=== PATIENT | male | born 1940 | race Caucasian/White ===

== ENCOUNTER 2017-08-16 16:09 | Inpatient (IN) | payer MEDICARE ==
[~2017-08-16] VITALS: Ht 182.9 cm; Wt 100.0 kg
[~2017-08-16 16:09] MED LIST: AMLO10TA PO; APIX2.5T PO; CLOP75TA15 PO; INSU100I25 SQ; LACT1CAP65 PO; LINA5TAB4 PO; METH500T PO; OXYC-150 PO; PREG100C PO; TAMS0.4C32 PO
[2017-08-16] MEDS ORDERED: SPIR50TA3 PO (16:40)
[2017-08-16] MEDS ORDERED: FURO40TA4 PO (16:40)
[2017-08-16 16:45] LABS: BASOPHILS % (AUTO) 0.5 % (0-1); EOSINOPHILS # (AUTO) 0.2 X10'3 (0-0.9); EOSINOPHILS % (AUTO) 3.4 % (0-6); HEMATOCRIT 34.8 % (42.0-52.0); HEMOGLOBIN 11.6 g/dl (14.0-17.9); LYMPHOCYTES # (AUTO) 0.9 X10'3 (1.1-4.8); LYMPHOCYTES % (AUTO) 16.6 % (21-51); MEAN CORPUSCULAR HGB CONC 33.4 % (33.0-36.5); MEAN CORPUSCULAR VOLUME 83.9 FL (78-98); MEAN PLATELET VOLUME 8.4 FL (7.4-10.4); MONOCYTES # (AUTO) 0.5 X10'3 (0-0.9); MONOCYTES % (AUTO) 9.7 % (2-12); NEUTROPHILS # (AUTO) 3.6 X10'3 (1.8-7.7); NEUTROPHILS % (AUTO) 69.8 % (42-75); PLATELET COUNT 99 X10'3 (140-440); RED BLOOD COUNT 4.15 X10'6 (4.70-6.10); RED CELL DISTRIBUTION WIDTH 17.6 % (11.5-14.5); WHITE BLOOD COUNT 5.2 X10'3 (4.5-11.0)
[2017-08-16 16:56] LABS: INR 0.9 INR; PARTIAL THROMBOPLASTIN TIME 26 SECONDS (22-32); PROTHROMBIN TIME 9.8 SECONDS (9.0-12.0)
[2017-08-16 17:01] LABS: ALANINE AMINOTRANSFERASE 25 U/L (12-78); ALBUMIN 3.4 G/DL (3.4-5.0); ALBUMIN/GLOBULIN RATIO 1.2 (1.1-1.5); ALKALINE PHOSPHATASE 103 IU/L (46-116); ANION GAP 9 (8-16); ASPARTATE AMINO TRANSFERASE 14 U/L (10-37); BILIRUBIN,TOTAL 0.5 MG/DL (0.1-1.0); BLOOD UREA NITROGEN 58 MG/DL (7-18); BUN/CREATININE RATIO 16.6 (5.4-32.0); CALCIUM 8.5 MG/DL (8.5-10.1); CHLORIDE 115 MMOL/L (99-107); GLUCOSE 100 MG/DL (70-104); MAGNESIUM 1.7 MG/DL (1.5-2.4); PHOSPHORUS 3.7 MG/DL (2.3-4.5); SODIUM 144 MMOL/L (135-145); TOTAL CARBON DIOXIDE 20.2 MMOL/L (24-32); TOTAL PROTEIN 6.3 G/DL (6.4-8.2); eGFR 17 ML/MIN
[2017-08-16] MEDS ORDERED: normal saline 1000ML IV soln IVB ONE ×2 (17:05→17:15)
[2017-08-16 17:10] LABS: POTASSIUM 6.8 MMOL/L (3.5-5.1)
[2017-08-16] MEDS ORDERED: sodium polystyrene sulfonate 15gm/60ml oral suspension PO ONE (17:15)
[2017-08-16] MEDS ORDERED: furosemide 10 MG/1 ML 10ml inj IV ONE (17:15)
[2017-08-16] MEDS: normal saline 1000ml 1,000 ML IV SCH ×3 (17:41→22:24)
[2017-08-16] MEDS ORDERED: acetaminophen 325mg tablet PO PRN ×2 (17:45)
[2017-08-16] MEDS ORDERED: mag hydrox/Alum hydrox/simeth 30ml oral suspension PO PRN (17:45)
[2017-08-16] MEDS ORDERED: ondansetron/PF 4mg/2ml inj IV PRN (17:45)
[2017-08-16] MEDS ORDERED: HYDROcodone/acetaminophen 10/325mg tab PO PRN (17:45)
[2017-08-16] MEDS ORDERED: magnesium hydroxide 30ml (MOM) UD suspension PO PRN (17:45)
[2017-08-16] MEDS ORDERED: HYDROcodone/acetaminophen 5mg/325mg tablet PO PRN (17:45)
[2017-08-16] MEDS ORDERED: sodium polystyrene sulfonate 15gm/60ml oral suspension PO PRN (17:45)
[2017-08-16] MEDS ORDERED: glucagon, human recombinant 1mg kit SUBCUT PRN (18:05)
[2017-08-16] MEDS ORDERED: dextrose ORAL solution 15 GM/59 ML bottle PO PRN ×2 (18:05)
[2017-08-16] MEDS ORDERED: insulin Lispro (HumaLOG) vial - multi-dose SQ SCH (18:05)
[2017-08-16] MEDS ORDERED: dextrose 50%-water 50ml dispensing syringe IV PRN ×2 (18:05)
[2017-08-16] MEDS ORDERED: MESSAGE TO PHARMACY PO ONE (18:05)
[2017-08-16 20:00] VITALS: BP 180/65
[2017-08-16] MEDS: insulin glargine (Lantus) pen - multi-dose SQ SCH (20:00)
[2017-08-16] MEDS ORDERED: non-formulary drug (Lactobacillus Acidophilus (Probiotic) 1 EACH) PO SCH (20:00)
[2017-08-16] MEDS ORDERED: non-formulary drug (Pregabalin (Lyrica) 1 CAP) PO SCH (20:00)
[2017-08-16] MEDS: pregabalin 25mg capsule PO SCH (20:12)
[2017-08-16] MEDS: apixaban 5mg tablet PO SCH (20:12)
[2017-08-16] MEDS: cyclobenzaprine 10mg tablet PO SCH ×2 (20:12→20:14)
[2017-08-16] MEDS ORDERED: temazepam 15mg capsule PO PRN (21:00)
[2017-08-16] MEDS ORDERED: insulin glargine (Lantus) pen - multi-dose SQ SCH (21:00)
[2017-08-16] MEDS ORDERED: Insulin Detemir pen SQ SCH (21:00)
[2017-08-16 21:43] LABS: HEMOGLOBIN A1C 4.6 % (4.5-6.2)
[2017-08-16 21:45] LABS: ALBUMIN 3.3 G/DL (3.4-5.0); ANION GAP 10 (8-16); BLOOD UREA NITROGEN 53 MG/DL (7-18); BUN/CREATININE RATIO 15.6 (5.4-32.0); CALCIUM 8.3 MG/DL (8.5-10.1); CHLORIDE 116 MMOL/L (99-107); GLUCOSE 127 MG/DL (70-104); POTASSIUM 5.7 MMOL/L (3.5-5.1); SODIUM 146 MMOL/L (135-145); TOTAL CARBON DIOXIDE 20.2 MMOL/L (24-32); eGFR 18 ML/MIN
[2017-08-16 22:00] VITALS: BP 172/72
[2017-08-17] MEDS ORDERED: non-formulary drug (Methocarbamol (Robaxin) 1 TAB) PO SCH
[2017-08-17] MEDS ORDERED: heparin, porcine 5000 units/ml vial SQ SCH
[2017-08-17 02:00] VITALS: BP 168/70
[2017-08-17 06:00] VITALS: BP 169/63
[2017-08-17 06:16] LABS: HEMATOCRIT 30.1 % (42.0-52.0); HEMOGLOBIN 10.1 g/dl (14.0-17.9); MEAN CORPUSCULAR HEMOGLOBIN 28.1 PG (27.0-31.0); MEAN CORPUSCULAR HGB CONC 33.5 % (33.0-36.5); MEAN CORPUSCULAR VOLUME 83.8 FL (78-98); MEAN PLATELET VOLUME 8.1 FL (7.4-10.4); PLATELET COUNT 72 X10'3 (140-440); RED BLOOD COUNT 3.58 X10'6 (4.70-6.10); RED CELL DISTRIBUTION WIDTH 17.2 % (11.5-14.5); WHITE BLOOD COUNT 3.2 X10'3 (4.5-11.0)
[2017-08-17 06:22] LABS: ALBUMIN 2.7 G/DL (3.4-5.0); ANION GAP 8 (8-16); BLOOD UREA NITROGEN 48 MG/DL (7-18); BUN/CREATININE RATIO 15.5 (5.4-32.0); CALCIUM 7.9 MG/DL (8.5-10.1); CHLORIDE 117 MMOL/L (99-107); GLUCOSE 115 MG/DL (70-104); MAGNESIUM 1.5 MG/DL (1.5-2.4); POTASSIUM 5.7 MMOL/L (3.5-5.1); SODIUM 144 MMOL/L (135-145); TOTAL CARBON DIOXIDE 18.7 MMOL/L (24-32); eGFR 20 ML/MIN
[2017-08-17] MEDS ORDERED: LACTOBACILLUS RHAMNOSUS GG 15 billion unit sprinkle caps PO SCH (07:30)
[2017-08-17] MEDS ORDERED: clopidogrel 75mg tablet PO SCH (08:00)
[2017-08-17] MEDS ORDERED: non-formulary drug (Amlodipine Besylate 1 TABLET) PO SCH (08:00)
[2017-08-17] MEDS ORDERED: linagliptin 5mg tablet PO SCH (08:00)
[2017-08-17] MEDS: insulin glargine (Lantus) pen - multi-dose SQ SCH (08:00)
[2017-08-17] MEDS: oxyCODONE/APAP 10/325mg tablet PO SCH ×2 (08:00)
[2017-08-17] MEDS ORDERED: amLODIPine 5mg tablet PO SCH (08:00)
[2017-08-17] MEDS ORDERED: tamsulosin 0.4mg capsule PO SCH (08:00)
[2017-08-17] MEDS: pregabalin 25mg capsule PO SCH (08:06)
[2017-08-17] MEDS: cyclobenzaprine 10mg tablet PO SCH ×2 (08:09)
[2017-08-17] MEDS: apixaban 5mg tablet PO SCH (08:10)
[2017-08-17 11:00] VITALS: BP 167/70
[2017-08-17] MEDS: normal saline 1000ml 1,000 ML IV SCH (11:53)
== END 2017-08-17 15:00 | disposition home or self-care (01) | DRG 640 ==
LOC: ER 16:10 → ED HOLD 17:54 → CMPBEDREQ 19:28 → PCU 3S 19:45
PROVIDERS: ADMIT Family Medicine; ATTEND Family Medicine
DX: E87.5 Hyperkalemia (principal); N17.0 Acute kidney failure with tubular necrosis; N18.4 Chronic kidney disease, stage 4 (severe); G89.29 Other chronic pain; M54.5 Low back pain; E87.1 Hypo-osmolality and hyponatremia; E11.22 Type 2 diabetes mellitus with diabetic chronic kidney disease; E11.42 Type 2 diabetes mellitus with diabetic polyneuropathy; E78.5 Hyperlipidemia, unspecified; I12.9 Hypertensive chronic kidney disease with stage 1 through stage 4 chronic kidney disease, or unspecified chronic kidney disease; Z89.411 Acquired absence of right great toe; Z90.49 Acquired absence of other specified parts of digestive tract; Z90.5 Acquired absence of kidney; Z93.3 Colostomy status; Z79.01 Long term (current) use of anticoagulants; Z79.02 Long term (current) use of antithrombotics/antiplatelets; Z79.4 Long term (current) use of insulin; Z85.038 Personal history of other malignant neoplasm of large intestine; Z85.528 Personal history of other malignant neoplasm of kidney; Z86.79 Personal history of other diseases of the circulatory system
CPT/HCPCS: 36415; 80048; 80053; 82948; 83036; 83735; 84100; 84132; 85025; 85027; 85610; 85730; 87070; 93005; 96374; 99285; A4421; A6212; A6213; J1815; J1940; J7030

== ENCOUNTER 2017-12-23 19:59 | Inpatient (IN) | payer MEDICARE ==
[~2017-12-23] VITALS: Ht 182.9 cm; Wt 100.0 kg
[2017-12-23] MEDS ORDERED: metroNIDAZOLE-Flagyl 500mg/NS 100 ML IV ONE (20:15)
[2017-12-23] MEDS ORDERED: normal saline 1000ML IV soln IVB ONE (20:15)
[2017-12-23] MEDS ORDERED: levoFLOXACIN-Levaquin 500mg/D5 100 ML IV ONE (20:15)
[2017-12-23 20:44] LABS: BASOPHILS % (AUTO) 0.3 % (0-1); EOSINOPHILS # (AUTO) 0.1 X10'3 (0-0.9); EOSINOPHILS % (AUTO) 1.1 % (0-6); HEMATOCRIT 36.2 % (42.0-52.0); HEMOGLOBIN 12.4 g/dl (14.0-17.9); LYMPHOCYTES # (AUTO) 0.8 X10'3 (1.1-4.8); LYMPHOCYTES % (AUTO) 7.7 % (21-51); MEAN CORPUSCULAR HEMOGLOBIN 29.4 PG (27.0-31.0); MEAN CORPUSCULAR HGB CONC 34.3 % (33.0-36.5); MEAN CORPUSCULAR VOLUME 85.6 FL (78-98); MEAN PLATELET VOLUME 8.5 FL (7.4-10.4); MONOCYTES # (AUTO) 0.7 X10'3 (0-0.9); MONOCYTES % (AUTO) 6.2 % (2-12); NEUTROPHILS % (AUTO) 84.7 % (42-75); PLATELET COUNT 105 X10'3 (140-440); RED BLOOD COUNT 4.23 X10'6 (4.70-6.10); RED CELL DISTRIBUTION WIDTH 15.5 % (11.5-14.5); WHITE BLOOD COUNT 10.6 X10'3 (4.5-11.0)
[2017-12-23 20:55] LABS: PARTIAL THROMBOPLASTIN TIME 27 SECONDS (22-32); PROTHROMBIN TIME 10.1 SECONDS (9.0-12.0)
[2017-12-23 21:00] LABS: ALANINE AMINOTRANSFERASE 20 U/L (12-78); ALBUMIN 3.5 G/DL (3.4-5.0); ALBUMIN/GLOBULIN RATIO 1.1 (1.1-1.5); ALKALINE PHOSPHATASE 91 IU/L (46-116); ANION GAP 15 (8-16); ASPARTATE AMINO TRANSFERASE 16 U/L (10-37); BILIRUBIN,TOTAL 0.8 MG/DL (0.1-1.0); BLOOD UREA NITROGEN 84 MG/DL (7-18); BUN/CREATININE RATIO 19.2 (5.4-32.0); CALCIUM 8.7 MG/DL (8.5-10.1); CHLORIDE 108 MMOL/L (99-107); CREATININE 4.38 MG/DL (0.60-1.10); GLUCOSE 145 MG/DL (70-104); SODIUM 141 MMOL/L (135-145); TOTAL CARBON DIOXIDE 18.1 MMOL/L (24-32); TOTAL PROTEIN 6.7 G/DL (6.4-8.2); eGFR 13 ML/MIN
[2017-12-23] MEDS ORDERED: temazepam 15mg capsule PO PRN (21:00)
[2017-12-23 21:05] LABS: POTASSIUM 5.6 MMOL/L (3.5-5.1)
[2017-12-23] MEDS ORDERED: acetaminophen 325mg tablet PO ONE (21:20)
[2017-12-23] MEDS ORDERED: AMLO10TA PO (21:57)
[2017-12-23] MEDS ORDERED: FURO80TA3 PO (21:57)
[2017-12-23] MEDS ORDERED: FURO-150 PO (21:57)
[2017-12-23 22:39] LABS: CLARITY,URINE CLEAR (Clear); COLOR,URINE YELLOW (Yellow); GLUCOSE, URINE 100 mg/dl (Neg); KETONES,URINE NEGATIVE (Neg); LEUKOCYTE ESTERASE ,URINE NEGATIVE (Neg); NITRITES, URINE NEGATIVE (Neg); OCCULT BLOOD,URINE MODERATE (Neg); PROTEIN,URINE >=300 mg/dl (Neg); UROBILINOGEN,URINE 0.2 E.U/dL (0.2-1.0)
[2017-12-23 22:40] LABS: UA COLLECTION TYPE CLN CATCH MIDSTREAM
[2017-12-23 23:01] LABS: MUCUS STRANDS FEW /LPF (Neg); SQUAMOUS EPITHELIAL CELL,UR FEW /LPF (FEW)
[2017-12-23 23:02] LABS: COARSE GRANULAR CAST 0-3 /LPF (NEGATIVE); HYALINE CASTS 0-3 /LPF (NEGATIVE)
[2017-12-23 23:03] LABS: BACTERIA,URINE NONE SEEN /HPF (Neg); RBC,URINE 0-2 /HPF (0-2); WBC,URINE 0-4 /HPF (0-4)
[2017-12-24] MEDS ORDERED: mag hydrox/Alum hydrox/simeth 30ml oral suspension PO PRN
[2017-12-24] MEDS ORDERED: acetaminophen 325mg tablet PO PRN ×2
[2017-12-24] MEDS ORDERED: HYDROcodone/acetaminophen 5mg/325mg tablet PO PRN
[2017-12-24] MEDS ORDERED: metoclopramide 5 mg/ml inj IV PRN
[2017-12-24] MEDS ORDERED: ondansetron/PF 4mg/2ml inj IV PRN
[2017-12-24] MEDS ORDERED: magnesium hydroxide 30ml (MOM) UD suspension PO PRN
[2017-12-24] MEDS ORDERED: dextrose 50%-water 50ml dispensing syringe IV PRN ×2 (00:15)
[2017-12-24] MEDS ORDERED: MESSAGE TO PHARMACY PO ONE (00:15)
[2017-12-24] MEDS ORDERED: glucagon, human recombinant 1mg kit SUBCUT PRN (00:15)
[2017-12-24] MEDS ORDERED: dextrose ORAL solution 15 GM/59 ML bottle PO PRN ×2 (00:15)
[2017-12-24 02:00] VITALS: BP 135/58
[2017-12-24] MEDS: normal saline 1000ml 1,000 ML IV SCH ×4 (02:44→17:50)
[2017-12-24 06:17] LABS: ALANINE AMINOTRANSFERASE 17 U/L (12-78); ALBUMIN 2.5 G/DL (3.4-5.0); ALKALINE PHOSPHATASE 63 IU/L (46-116); ANION GAP 12 (8-16); ASPARTATE AMINO TRANSFERASE 14 U/L (10-37); BILIRUBIN,TOTAL 0.5 MG/DL (0.1-1.0); BLOOD UREA NITROGEN 77 MG/DL (7-18); BUN/CREATININE RATIO 19.1 (5.4-32.0); CALCIUM 7.8 MG/DL (8.5-10.1); CHLORIDE 114 MMOL/L (99-107); CREATININE 4.04 MG/DL (0.60-1.10); GLUCOSE 150 MG/DL (70-104); POTASSIUM 4.8 MMOL/L (3.5-5.1); SODIUM 145 MMOL/L (135-145); TOTAL CARBON DIOXIDE 18.8 MMOL/L (24-32); TOTAL PROTEIN 5.1 G/DL (6.4-8.2); eGFR 14 ML/MIN
[2017-12-24 07:35] VITALS: BP 141/76
[2017-12-24] MEDS ORDERED: insulin glargine (Lantus) pen - multi-dose SQ SCH (08:00)
[2017-12-24] MEDS ORDERED: Insulin Detemir pen SQ SCH (08:00)
[2017-12-24 09:02] LABS: BASOPHILS % (AUTO) 0.2 % (0-1); EOSINOPHILS # (AUTO) 0.1 X10'3 (0-0.9); EOSINOPHILS % (AUTO) 1.5 % (0-6); HEMATOCRIT 29.8 % (42.0-52.0); HEMOGLOBIN 10.1 g/dl (14.0-17.9); LYMPHOCYTES % (AUTO) 16.2 % (21-51); MEAN CORPUSCULAR HEMOGLOBIN 28.7 PG (27.0-31.0); MEAN CORPUSCULAR HGB CONC 33.8 % (33.0-36.5); MEAN CORPUSCULAR VOLUME 84.9 FL (78-98); MEAN PLATELET VOLUME 8.3 FL (7.4-10.4); MONOCYTES # (AUTO) 0.6 X10'3 (0-0.9); MONOCYTES % (AUTO) 9.8 % (2-12); NEUTROPHILS # (AUTO) 4.6 X10'3 (1.8-7.7); NEUTROPHILS % (AUTO) 72.3 % (42-75); RED BLOOD COUNT 3.51 X10'6 (4.70-6.10); RED CELL DISTRIBUTION WIDTH 15.2 % (11.5-14.5); WHITE BLOOD COUNT 6.3 X10'3 (4.5-11.0)
[2017-12-24 09:13] LABS: PLATELET COUNT 68 X10'3 (140-440)
[2017-12-24] MEDS: amLODIPine 5mg tablet PO SCH (09:56)
[2017-12-24] MEDS: lactobacillus rhamnosus 10,000 MMU CELLS/CAPSULE PO SCH ×2 (09:56→19:50)
[2017-12-24] MEDS: pregabalin 25mg capsule PO SCH ×2 (09:56→19:50)
[2017-12-24] MEDS: oxyCODONE/APAP 10/325mg tablet PO SCH ×2 (09:58→16:00)
[2017-12-24] MEDS: heparin, porcine 5000 units/ml vial SQ SCH ×2 (09:59→19:51)
[2017-12-24 11:13] LABS: C-REACTIVE PROTEIN 8.56 MG/DL (0.0-0.5); LIPASE 241 U/L (73-393); TROPONIN I < 0.04 NG/ML (0.0-0.05)
[2017-12-24 12:53] VITALS: BP 137/62
[2017-12-24 18:00] VITALS: BP 147/63
[2017-12-24] MEDS: methylPREDNISolone sod succ 125mg/2ml vial IV SCH (19:50)
[2017-12-24] MEDS: insulin Lispro (HumaLOG) vial - multi-dose SQ SCH (19:54)
[2017-12-24] MEDS: insulin glargine (Lantus) pen - multi-dose SQ SCH (21:51)
[2017-12-25] VITALS: BP_SYST 121; BP_SYST 149; BP_DIAS 52; BP_DIAS 71
[2017-12-25] MEDS: normal saline 1000ml 1,000 ML IV SCH ×3 (02:05→21:15)
[2017-12-25 04:30] VITALS: BP 161/62
[2017-12-25 05:44] LABS: BASOPHILS % (AUTO) 0 % (0-1); HEMATOCRIT 31.1 % (42.0-52.0); HEMOGLOBIN 10.5 g/dl (14.0-17.9); LYMPHOCYTES # (AUTO) 0.3 X10'3 (1.1-4.8); LYMPHOCYTES % (AUTO) 6.6 % (21-51); MEAN CORPUSCULAR HEMOGLOBIN 29.1 PG (27.0-31.0); MEAN CORPUSCULAR HGB CONC 33.7 % (33.0-36.5); MEAN CORPUSCULAR VOLUME 86.2 FL (78-98); MEAN PLATELET VOLUME 8.6 FL (7.4-10.4); MONOCYTES # (AUTO) 0.1 X10'3 (0-0.9); MONOCYTES % (AUTO) 1.6 % (2-12); NEUTROPHILS # (AUTO) 4.3 X10'3 (1.8-7.7); NEUTROPHILS % (AUTO) 90.8 % (42-75); PLATELET COUNT 68 X10'3 (140-440); RED BLOOD COUNT 3.61 X10'6 (4.70-6.10); RED CELL DISTRIBUTION WIDTH 15.4 % (11.5-14.5); WHITE BLOOD COUNT 4.7 X10'3 (4.5-11.0)
[2017-12-25 06:18] LABS: ALANINE AMINOTRANSFERASE 15 U/L (12-78); ALBUMIN 2.7 G/DL (3.4-5.0); ALBUMIN/GLOBULIN RATIO 0.9 (1.1-1.5); ALKALINE PHOSPHATASE 66 IU/L (46-116); ANION GAP 13 (8-16); ASPARTATE AMINO TRANSFERASE 13 U/L (10-37); BILIRUBIN,TOTAL 0.4 MG/DL (0.1-1.0); BLOOD UREA NITROGEN 69 MG/DL (7-18); BUN/CREATININE RATIO 18.1 (5.4-32.0); CALCIUM 8.4 MG/DL (8.5-10.1); CHLORIDE 113 MMOL/L (99-107); CREATININE 3.82 MG/DL (0.60-1.10); GLUCOSE 224 MG/DL (70-104); POTASSIUM 5.9 MMOL/L (3.5-5.1); SODIUM 142 MMOL/L (135-145); TOTAL CARBON DIOXIDE 16.5 MMOL/L (24-32); TOTAL PROTEIN 5.6 G/DL (6.4-8.2); eGFR 15 ML/MIN
[2017-12-25] MEDS ORDERED: levoFLOXACIN-Levaquin 750MG/D5 150 ML IV ONE (06:55)
[2017-12-25 07:28] VITALS: BP 162/63
[2017-12-25] MEDS: oxyCODONE/APAP 10/325mg tablet PO SCH ×2 (08:00)
[2017-12-25] MEDS: heparin, porcine 5000 units/ml vial SQ SCH ×3 (08:00→21:27)
[2017-12-25] MEDS: methylPREDNISolone sod succ 125mg/2ml vial IV SCH ×2 (08:23→21:26)
[2017-12-25] MEDS: pregabalin 25mg capsule PO SCH ×2 (08:24→21:27)
[2017-12-25] MEDS: lactobacillus rhamnosus 10,000 MMU CELLS/CAPSULE PO SCH ×2 (08:24→21:26)
[2017-12-25] MEDS: amLODIPine 5mg tablet PO SCH (08:24)
[2017-12-25] MEDS: insulin Lispro (HumaLOG) vial - multi-dose SQ SCH ×3 (09:29→21:48)
[2017-12-25] MEDS ORDERED: oxyCODONE/APAP 10/325mg tablet PO PRN (10:35)
[2017-12-25] MEDS ORDERED: dextrose 50%-water 50ml dispensing syringe IV ONE (12:45)
[2017-12-25] MEDS ORDERED: albuterol 2.5 MG/3 ML nebule NEB ONE (12:45)
[2017-12-25] MEDS ORDERED: sodium bicarbonate (8.4%) 1 mEq/ml syringe IV ONE (12:45)
[2017-12-25] MEDS ORDERED: sodium polystyrene sulfonate 15gm/60ml oral suspension PO ONE (12:45)
[2017-12-25] MEDS ORDERED: insulin regular, human 10 units/0.1 ml syringe IV ONE (12:45)
[2017-12-25] MEDS: HYDROchlorothiazide 25mg tablet PO SCH (14:16)
[2017-12-25] MEDS: furosemide 40mg/4ml inj IV SCH (14:19)
[2017-12-25 15:12] VITALS: BP 163/58
[2017-12-25] MEDS: vancomycin inj 1,250 MG in normal saline 250ml IV soln 250 ML IV SCH (16:51)
[2017-12-25] MEDS ORDERED: heparin 10,000 units/1 ML INJ IV ONE (18:30)
[2017-12-25] MEDS ORDERED: heparin 10,000 units/1 ML INJ IV PRN (18:30)
[2017-12-25 19:10] VITALS: BP 144/54
[2017-12-25 20:00] VITALS: BP 144/54
[2017-12-25] MEDS ORDERED: vancomycin/NS 1 GM ADD-VANTAGE 250 ML IV SCH (20:00)
[2017-12-25] MEDS: cloNIDine 0.1 mg tablet PO SCH ×2 (20:00→21:26)
[2017-12-25] MEDS: insulin glargine (Lantus) pen - multi-dose SQ SCH (21:50)
[2017-12-26] VITALS: BP 147/52
[2017-12-26 05:46] LABS: BASOPHILS % (AUTO) 0 % (0-1); EOSINOPHILS % (AUTO) 0 % (0-6); HEMATOCRIT 28.2 % (42.0-52.0); HEMOGLOBIN 9.6 g/dl (14.0-17.9); LYMPHOCYTES # (AUTO) 0.3 X10'3 (1.1-4.8); LYMPHOCYTES % (AUTO) 4.5 % (21-51); MEAN CORPUSCULAR HEMOGLOBIN 29.2 PG (27.0-31.0); MEAN CORPUSCULAR HGB CONC 34.2 % (33.0-36.5); MEAN CORPUSCULAR VOLUME 85.4 FL (78-98); MEAN PLATELET VOLUME 8.8 FL (7.4-10.4); MONOCYTES # (AUTO) 0.2 X10'3 (0-0.9); MONOCYTES % (AUTO) 3.5 % (2-12); NEUTROPHILS # (AUTO) 5.5 X10'3 (1.8-7.7); PLATELET COUNT 79 X10'3 (140-440); RED CELL DISTRIBUTION WIDTH 14.7 % (11.5-14.5)
[2017-12-26 06:02] LABS: ALANINE AMINOTRANSFERASE 16 U/L (12-78); ALBUMIN 2.6 G/DL (3.4-5.0); ALKALINE PHOSPHATASE 64 IU/L (46-116); ANION GAP 15 (8-16); ASPARTATE AMINO TRANSFERASE 8 U/L (10-37); BILIRUBIN,TOTAL 0.3 MG/DL (0.1-1.0); BLOOD UREA NITROGEN 71 MG/DL (7-18); BUN/CREATININE RATIO 18.1 (5.4-32.0); CALCIUM 8.1 MG/DL (8.5-10.1); CHLORIDE 111 MMOL/L (99-107); CREATININE 3.93 MG/DL (0.60-1.10); GLUCOSE 248 MG/DL (70-104); POTASSIUM 4.1 MMOL/L (3.5-5.1); SODIUM 143 MMOL/L (135-145); TOTAL CARBON DIOXIDE 17.3 MMOL/L (24-32); TOTAL PROTEIN 5.3 G/DL (6.4-8.2); eGFR 15 ML/MIN
[2017-12-26 07:37] VITALS: BP 146/58
[2017-12-26] MEDS: heparin, porcine 5000 units/ml vial SQ SCH ×2 (07:46→20:00)
[2017-12-26] MEDS: lactobacillus rhamnosus 10,000 MMU CELLS/CAPSULE PO SCH ×2 (07:47→20:39)
[2017-12-26] MEDS: pregabalin 25mg capsule PO SCH ×2 (07:47→20:38)
[2017-12-26] MEDS: amLODIPine 5mg tablet PO SCH (07:47)
[2017-12-26] MEDS: methylPREDNISolone sod succ 125mg/2ml vial IV SCH ×2 (07:47→20:36)
[2017-12-26] MEDS: cloNIDine 0.1 mg tablet PO SCH ×2 (07:48→20:00)
[2017-12-26] MEDS: normal saline 1000ml 1,000 ML IV SCH ×3 (07:50→16:15)
[2017-12-26] MEDS: insulin Lispro (HumaLOG) vial - multi-dose SQ SCH ×4 (07:58→22:16)
[2017-12-26 11:50] VITALS: BP 155/68
[2017-12-26 11:52] LABS: MAGNESIUM 1.5 MG/DL (1.5-2.4); PHOSPHORUS 5.6 MG/DL (2.3-4.5)
[2017-12-26] MEDS: HYDROchlorothiazide 25mg tablet PO SCH (12:49)
[2017-12-26] MEDS: furosemide 40mg/4ml inj IV SCH (12:49)
[2017-12-26] MEDS: vancomycin inj 1,250 MG in normal saline 250ml IV soln 250 ML IV SCH (16:11)
[2017-12-26 20:00] VITALS: BP 156/61
[2017-12-26] MEDS: insulin glargine (Lantus) pen - multi-dose SQ SCH (22:14)
[2017-12-27] VITALS: BP 114/57
[2017-12-27] MEDS: normal saline 1000ml 1,000 ML IV SCH ×4 (02:28→23:57)
[2017-12-27 06:25] LABS: BASOPHILS % (AUTO) 0.1 % (0-1); EOSINOPHILS % (AUTO) 0 % (0-6); HEMATOCRIT 28.7 % (42.0-52.0); HEMOGLOBIN 9.8 g/dl (14.0-17.9); LYMPHOCYTES # (AUTO) 0.2 X10'3 (1.1-4.8); LYMPHOCYTES % (AUTO) 4.8 % (21-51); MEAN CORPUSCULAR HEMOGLOBIN 28.7 PG (27.0-31.0); MEAN CORPUSCULAR HGB CONC 33.9 % (33.0-36.5); MEAN CORPUSCULAR VOLUME 84.6 FL (78-98); MEAN PLATELET VOLUME 8.3 FL (7.4-10.4); MONOCYTES # (AUTO) 0.2 X10'3 (0-0.9); MONOCYTES % (AUTO) 3.9 % (2-12); NEUTROPHILS # (AUTO) 4.4 X10'3 (1.8-7.7); NEUTROPHILS % (AUTO) 91.2 % (42-75); PLATELET COUNT 84 X10'3 (140-440); RED CELL DISTRIBUTION WIDTH 14.7 % (11.5-14.5); WHITE BLOOD COUNT 4.8 X10'3 (4.5-11.0)
[2017-12-27 06:41] LABS: ALANINE AMINOTRANSFERASE 15 U/L (12-78); ALBUMIN 2.7 G/DL (3.4-5.0); ALBUMIN/GLOBULIN RATIO 1.1 (1.1-1.5); ALKALINE PHOSPHATASE 54 IU/L (46-116); ANION GAP 16 (8-16); ASPARTATE AMINO TRANSFERASE 16 U/L (10-37); BILIRUBIN,TOTAL 0.3 MG/DL (0.1-1.0); BLOOD UREA NITROGEN 82 MG/DL (7-18); CALCIUM 7.4 MG/DL (8.5-10.1); CHLORIDE 110 MMOL/L (99-107); CREATININE 3.73 MG/DL (0.60-1.10); GLUCOSE 176 MG/DL (70-104); SODIUM 146 MMOL/L (135-145); TOTAL PROTEIN 5.2 G/DL (6.4-8.2); eGFR 16 ML/MIN
[2017-12-27] MEDS ORDERED: potassium Cl 20 mEq SR tablet PO STA (07:34)
[2017-12-27] MEDS: methylPREDNISolone sod succ 125mg/2ml vial IV SCH ×2 (07:54→20:49)
[2017-12-27] MEDS: heparin, porcine 5000 units/ml vial SQ SCH ×2 (07:55→20:00)
[2017-12-27] MEDS: amLODIPine 5mg tablet PO SCH (07:55)
[2017-12-27] MEDS: cloNIDine 0.1 mg tablet PO SCH ×2 (07:55→20:00)
[2017-12-27] MEDS: pregabalin 25mg capsule PO SCH ×2 (07:55→20:50)
[2017-12-27] MEDS: lactobacillus rhamnosus 10,000 MMU CELLS/CAPSULE PO SCH ×2 (07:55→20:50)
[2017-12-27] MEDS ORDERED: levoFLOXACIN-Levaquin 500mg/D5 100 ML IV SCH (08:00)
[2017-12-27] MEDS: insulin Lispro (HumaLOG) vial - multi-dose SQ SCH ×4 (08:09→21:15)
[2017-12-27] MEDS ORDERED: [UNRECOGNIZED DRUG - OTHER] PO (09:11)
[2017-12-27 11:07] VITALS: BP 162/65
[2017-12-27] MEDS: furosemide 40mg/4ml inj IV SCH (12:42)
[2017-12-27] MEDS: HYDROchlorothiazide 25mg tablet PO SCH (12:42)
[2017-12-27] MEDS: vancomycin inj 1,250 MG in normal saline 250ml IV soln 250 ML IV SCH (16:41)
[2017-12-27 20:00] VITALS: BP 158/59
[2017-12-27] MEDS: insulin glargine (Lantus) pen - multi-dose SQ SCH (21:16)
[2017-12-28] MEDS: normal saline 1000ml 1,000 ML IV SCH (04:09)
[2017-12-28 05:56] LABS: BASOPHILS % (AUTO) 0.1 % (0-1); EOSINOPHILS % (AUTO) 0 % (0-6); HEMATOCRIT 29.7 % (42.0-52.0); HEMOGLOBIN 10.2 g/dl (14.0-17.9); LYMPHOCYTES # (AUTO) 0.2 X10'3 (1.1-4.8); LYMPHOCYTES % (AUTO) 5.9 % (21-51); MEAN CORPUSCULAR HEMOGLOBIN 28.9 PG (27.0-31.0); MEAN CORPUSCULAR HGB CONC 34.3 % (33.0-36.5); MEAN CORPUSCULAR VOLUME 84.2 FL (78-98); MEAN PLATELET VOLUME 8.5 FL (7.4-10.4); MONOCYTES # (AUTO) 0.2 X10'3 (0-0.9); MONOCYTES % (AUTO) 4.6 % (2-12); NEUTROPHILS # (AUTO) 3.6 X10'3 (1.8-7.7); NEUTROPHILS % (AUTO) 89.4 % (42-75); PLATELET COUNT 82 X10'3 (140-440); RED BLOOD COUNT 3.53 X10'6 (4.70-6.10); RED CELL DISTRIBUTION WIDTH 14.7 % (11.5-14.5); WHITE BLOOD COUNT 4.1 X10'3 (4.5-11.0)
[2017-12-28 06:21] LABS: ALANINE AMINOTRANSFERASE 20 U/L (12-78); ALBUMIN 2.5 G/DL (3.4-5.0); ALKALINE PHOSPHATASE 55 IU/L (46-116); ANION GAP 16 (8-16); ASPARTATE AMINO TRANSFERASE 12 U/L (10-37); BILIRUBIN,TOTAL 0.4 MG/DL (0.1-1.0); BLOOD UREA NITROGEN 84 MG/DL (7-18); BUN/CREATININE RATIO 25.8 (5.4-32.0); CALCIUM 7.2 MG/DL (8.5-10.1); CHLORIDE 112 MMOL/L (99-107); CREATININE 3.26 MG/DL (0.60-1.10); GLUCOSE 172 MG/DL (70-104); POTASSIUM 3.1 MMOL/L (3.5-5.1); SODIUM 147 MMOL/L (135-145); TOTAL CARBON DIOXIDE 19.2 MMOL/L (24-32); TOTAL PROTEIN 4.9 G/DL (6.4-8.2); eGFR 18 ML/MIN
[2017-12-28 07:01] VITALS: BP 161/67
[2017-12-28] MEDS: cloNIDine 0.1 mg tablet PO SCH (08:00)
[2017-12-28] MEDS: heparin, porcine 5000 units/ml vial SQ SCH (08:00)
[2017-12-28] MEDS: methylPREDNISolone sod succ 125mg/2ml vial IV SCH (08:34)
[2017-12-28] MEDS: amLODIPine 5mg tablet PO SCH (08:34)
[2017-12-28] MEDS: pregabalin 25mg capsule PO SCH (08:34)
[2017-12-28] MEDS: lactobacillus rhamnosus 10,000 MMU CELLS/CAPSULE PO SCH (08:35)
[2017-12-28] MEDS: insulin Lispro (HumaLOG) vial - multi-dose SQ SCH (08:50)
[2017-12-28 12:00] VITALS: BP 146/59
[2017-12-28] MEDS ORDERED: VANCOMYCIN LEVEL IV ONE (16:30)
== END 2017-12-28 14:06 | disposition home or self-care (01) | DRG 871 ==
LOC: ER 19:59 → SUR 3N 23:57
PROVIDERS: ADMIT Family Medicine; ATTEND Family Medicine
DX: A41.9 Sepsis, unspecified organism (principal); G93.40 Encephalopathy, unspecified; N18.4 Chronic kidney disease, stage 4 (severe); J18.9 Pneumonia, unspecified organism; E11.22 Type 2 diabetes mellitus with diabetic chronic kidney disease; N17.9 Acute kidney failure, unspecified; E11.42 Type 2 diabetes mellitus with diabetic polyneuropathy; E87.5 Hyperkalemia; I48.91 Unspecified atrial fibrillation; G82.20 Paraplegia, unspecified; I71.4 Abdominal aortic aneurysm, without rupture; R00.1 Bradycardia, unspecified; G89.29 Other chronic pain; M10.9 Gout, unspecified; M54.5 Low back pain; E66.9 Obesity, unspecified; E78.5 Hyperlipidemia, unspecified; E87.6 Hypokalemia; I12.9 Hypertensive chronic kidney disease with stage 1 through stage 4 chronic kidney disease, or unspecified chronic kidney disease; Z85.038 Personal history of other malignant neoplasm of large intestine; Z85.528 Personal history of other malignant neoplasm of kidney; Z89.411 Acquired absence of right great toe; Z90.5 Acquired absence of kidney; Z93.3 Colostomy status; Z99.3 Dependence on wheelchair; Z79.899 Other long term (current) drug therapy; Z79.01 Long term (current) use of anticoagulants; Z79.82 Long term (current) use of aspirin; Z98.41 Cataract extraction status, right eye; Z98.42 Cataract extraction status, left eye; Z90.49 Acquired absence of other specified parts of digestive tract
CPT/HCPCS: 36415; 70450; 71045; 71250; 74176; 80053; 81001; 82140; 82948; 83036; 83605; 83690; 83735; 83880; 84100; 84145; 84443; 84484; 85025; 85610; 85651; 85730; 86140; 87040; 87045; 87046; 87070; 87077; 87186; 87324; 87449; 93005; 94640; 94760; 96365; 96368; 97110; 97116; 97162; 97530; 99285; A4421; A6212; J1644; J1815; J1940; J1956; J2405; J2930; J3370; J3490; J7030

== ENCOUNTER 2018-04-14 20:36 | Observation (INO) | payer MEDICARE ==
[~2018-04-14] VITALS: Ht 182.9 cm; Wt 89.5 kg
[~2018-04-14 20:36] MED LIST changes: -APIX2.5T PO; -CLOP75TA15 PO; -LINA5TAB4 PO; -METH500T PO; -OXYC-150 PO; -TAMS0.4C32 PO
[2018-04-14] MEDS ORDERED: normal saline 1000ML IV soln IV ONE (21:25)
[2018-04-14 22:00] LABS: CLARITY,URINE CLEAR (Clear); COLOR,URINE YELLOW (Yellow); GLUCOSE, URINE 250 mg/dl (Neg); KETONES,URINE NEGATIVE (Neg); LEUKOCYTE ESTERASE ,URINE NEGATIVE (Neg); NITRITES, URINE NEGATIVE (Neg); OCCULT BLOOD,URINE MODERATE (Neg); PROTEIN,URINE >=300 mg/dl (Neg); UROBILINOGEN,URINE 0.2 E.U/dL (0.2-1.0)
[2018-04-14 22:01] LABS: UA COLLECTION TYPE CLN CATCH MIDSTREAM
[2018-04-14] MEDS ORDERED: CefTRIAXone/D5W-Rocephin 1gm 50 ML IV ONE (22:15)
[2018-04-14 22:19] LABS: FINE GRANULAR CAST 0-3 /LPF (NEGATIVE); HYALINE CASTS 0-3 /LPF (NEGATIVE)
[2018-04-14 22:21] LABS: BACTERIA,URINE FEW /HPF (Neg); MUCUS STRANDS MODERATE /LPF (Neg); RBC,URINE 0-2 /HPF (0-2); SQUAMOUS EPITHELIAL CELL,UR FEW /LPF (FEW); WBC,URINE 0-4 /HPF (0-4)
[2018-04-14 23:12] LABS: BASOPHILS % (AUTO) 0.3 % (0-1); EOSINOPHILS # (AUTO) 0.1 X10'3 (0-0.9); EOSINOPHILS % (AUTO) 1.9 % (0-6); HEMATOCRIT 30.2 % (42.0-52.0); HEMOGLOBIN 10.4 g/dl (14.0-17.9); LYMPHOCYTES # (AUTO) 0.9 X10'3 (1.1-4.8); LYMPHOCYTES % (AUTO) 11.6 % (21-51); MEAN CORPUSCULAR HGB CONC 34.5 % (33.0-36.5); MEAN CORPUSCULAR VOLUME 84.1 FL (78-98); MONOCYTES # (AUTO) 0.7 X10'3 (0-0.9); MONOCYTES % (AUTO) 9.6 % (2-12); NEUTROPHILS # (AUTO) 5.7 X10'3 (1.8-7.7); NEUTROPHILS % (AUTO) 76.6 % (42-75); PLATELET COUNT 129 X10'3 (140-440); RED BLOOD COUNT 3.59 X10'6 (4.70-6.10); RED CELL DISTRIBUTION WIDTH 16.3 % (11.5-14.5); WHITE BLOOD COUNT 7.5 X10'3 (4.5-11.0)
[2018-04-14 23:23] LABS: PARTIAL THROMBOPLASTIN TIME 27 SECONDS (22-32); PROTHROMBIN TIME 10.1 SECONDS (9.0-12.0)
[2018-04-14 23:29] LABS: ALANINE AMINOTRANSFERASE 20 U/L (12-78); ALBUMIN 3.1 G/DL (3.4-5.0); ALBUMIN/GLOBULIN RATIO 1.1 (1.1-1.5); ALKALINE PHOSPHATASE 83 IU/L (46-116); ANION GAP 12 (8-16); ASPARTATE AMINO TRANSFERASE 16 U/L (10-37); BILIRUBIN,TOTAL 0.5 MG/DL (0.1-1.0); BLOOD UREA NITROGEN 69 MG/DL (7-18); BUN/CREATININE RATIO 15.5 (5.4-32.0); CALCIUM 7.9 MG/DL (8.5-10.1); CHLORIDE 108 MMOL/L (99-107); CREATININE 4.44 MG/DL (0.60-1.10); GLUCOSE 134 MG/DL (70-104); MAGNESIUM 1.4 MG/DL (1.5-2.4); POTASSIUM 5.1 MMOL/L (3.5-5.1); SODIUM 139 MMOL/L (135-145); TOTAL CARBON DIOXIDE 19.2 MMOL/L (24-32); eGFR 13 ML/MIN
[2018-04-14] MEDS ORDERED: FURO80TA3 (23:35)
[2018-04-14] MEDS ORDERED: TAMS0.4C32 (23:35)
[2018-04-15] MEDS ORDERED: PREG100C PO (00:17)
[2018-04-15] MEDS ORDERED: morphine 2 MG/ML inj. syringe IV PRN ×2 (01:00)
[2018-04-15] MEDS ORDERED: acetaminophen 325mg tablet PO PRN (01:00)
[2018-04-15] MEDS ORDERED: bisacodyl 10mg suppository rectal RC PRN (01:00)
[2018-04-15] MEDS ORDERED: HYDROcodone/acetaminophen 5mg/325mg tablet PO PRN (01:00)
[2018-04-15] MEDS ORDERED: dextrose ORAL solution 15 GM/59 ML bottle PO PRN ×2 (01:10)
[2018-04-15] MEDS ORDERED: MESSAGE TO PHARMACY PO ONE (01:10)
[2018-04-15] MEDS ORDERED: insulin Lispro (HumaLOG) vial - multi-dose SQ SCH (01:10)
[2018-04-15] MEDS ORDERED: dextrose 50%-water 50ml dispensing syringe IV PRN ×2 (01:10)
[2018-04-15] MEDS ORDERED: glucagon, human recombinant 1mg kit SUBCUT PRN (01:10)
[2018-04-15 02:00] VITALS: BP 147/67
[2018-04-15 02:01] LABS: TROPONIN I < 0.04 NG/ML (0.0-0.05)
[2018-04-15] MEDS: sodium chloride 0.45% 1,000 ML IV SCH ×2 (04:28→18:09)
[2018-04-15] MEDS ORDERED: magnesium Cl slow-release 64mg tablet PO PRN (06:05)
[2018-04-15 07:13] VITALS: BP 152/52
[2018-04-15] MEDS: docusate sod 100mg capsule PO SCH ×2 (08:00→14:11)
[2018-04-15] MEDS: lactobacillus rhamnosus 10,000 MMU CELLS/CAPSULE PO SCH ×2 (08:10→21:11)
[2018-04-15] MEDS: pregabalin 25mg capsule PO SCH (08:10)
[2018-04-15] MEDS: amLODIPine 5mg tablet PO SCH (08:10)
[2018-04-15] MEDS: CefTRIAXone/D5W-Rocephin 1gm 50 ML IV SCH (08:13)
[2018-04-15] MEDS ORDERED: pneumococcal 23-VAL P-sac vacc 25 mcg/0.5ml vial IMVAC ONE (10:00)
[2018-04-15 11:00] VITALS: BP 162/87
[2018-04-15 15:00] VITALS: BP 157/56
[2018-04-15 19:00] VITALS: BP 152/88
[2018-04-15] MEDS ORDERED: insulin glargine (Lantus) pen - multi-dose SQ SCH (21:00)
[2018-04-15] MEDS ORDERED: tamsulosin 0.4mg capsule PO SCH (21:00)
[2018-04-15 23:00] VITALS: BP 170/73
[2018-04-16 02:40] VITALS: BP 152/88
[2018-04-16 03:00] VITALS: BP 144/64
[2018-04-16 06:00] VITALS: BP 143/93
[2018-04-16 06:25] LABS: BASOPHILS % (AUTO) 0.2 % (0-1); EOSINOPHILS # (AUTO) 0.2 X10'3 (0-0.9); EOSINOPHILS % (AUTO) 2.4 % (0-6); HEMATOCRIT 30.7 % (42.0-52.0); HEMOGLOBIN 10.4 g/dl (14.0-17.9); LYMPHOCYTES # (AUTO) 0.8 X10'3 (1.1-4.8); LYMPHOCYTES % (AUTO) 11.1 % (21-51); MEAN CORPUSCULAR HEMOGLOBIN 28.5 PG (27.0-31.0); MEAN CORPUSCULAR HGB CONC 33.8 % (33.0-36.5); MEAN CORPUSCULAR VOLUME 84.4 FL (78-98); MEAN PLATELET VOLUME 7.8 FL (7.4-10.4); MONOCYTES # (AUTO) 0.3 X10'3 (0-0.9); MONOCYTES % (AUTO) 4.8 % (2-12); NEUTROPHILS # (AUTO) 5.8 X10'3 (1.8-7.7); NEUTROPHILS % (AUTO) 81.5 % (42-75); PLATELET COUNT 106 X10'3 (140-440); RED BLOOD COUNT 3.64 X10'6 (4.70-6.10); RED CELL DISTRIBUTION WIDTH 16.3 % (11.5-14.5); WHITE BLOOD COUNT 7.1 X10'3 (4.5-11.0)
[2018-04-16 06:40] LABS: ALANINE AMINOTRANSFERASE 21 U/L (12-78); ALBUMIN 2.7 G/DL (3.4-5.0); ALKALINE PHOSPHATASE 74 IU/L (46-116); ANION GAP 11 (8-16); ASPARTATE AMINO TRANSFERASE 9 U/L (10-37); BILIRUBIN,TOTAL 0.6 MG/DL (0.1-1.0); BLOOD UREA NITROGEN 57 MG/DL (7-18); BUN/CREATININE RATIO 13.9 (5.4-32.0); CALCIUM 7.7 MG/DL (8.5-10.1); CHLORIDE 111 MMOL/L (99-107); CREATININE 4.11 MG/DL (0.60-1.10); GLUCOSE 114 MG/DL (70-104); MAGNESIUM 1.4 MG/DL (1.5-2.4); POTASSIUM 4.7 MMOL/L (3.5-5.1); SODIUM 140 MMOL/L (135-145); TOTAL CARBON DIOXIDE 18.4 MMOL/L (24-32); TOTAL PROTEIN 5.5 G/DL (6.4-8.2); eGFR 14 ML/MIN
[2018-04-16] MEDS: sodium chloride 0.45% 1,000 ML IV SCH (06:58)
[2018-04-16] MEDS: lactobacillus rhamnosus 10,000 MMU CELLS/CAPSULE PO SCH (07:17)
[2018-04-16] MEDS: docusate sod 100mg capsule PO SCH (07:17)
[2018-04-16] MEDS: amLODIPine 5mg tablet PO SCH (07:17)
[2018-04-16] MEDS: pregabalin 25mg capsule PO SCH (07:17)
[2018-04-16] MEDS: CefTRIAXone/D5W-Rocephin 1gm 50 ML IV SCH (07:17)
[2018-04-16 11:00] VITALS: BP 132/70
== END 2018-04-16 11:55 | disposition home health service (06) ==
LOC: ER 20:37 → PCU 3S 04-15 00:57
PROVIDERS: ADMIT Emergency Medicine; ATTEND Emergency Medicine
DX: G93.40 Encephalopathy, unspecified (principal); I12.9 Hypertensive chronic kidney disease with stage 1 through stage 4 chronic kidney disease, or unspecified chronic kidney disease; E11.22 Type 2 diabetes mellitus with diabetic chronic kidney disease; N18.4 Chronic kidney disease, stage 4 (severe); N17.9 Acute kidney failure, unspecified; E11.42 Type 2 diabetes mellitus with diabetic polyneuropathy; D64.9 Anemia, unspecified; E78.5 Hyperlipidemia, unspecified; Z79.4 Long term (current) use of insulin; I71.4 Abdominal aortic aneurysm, without rupture; Z85.038 Personal history of other malignant neoplasm of large intestine; Z90.49 Acquired absence of other specified parts of digestive tract; Z85.528 Personal history of other malignant neoplasm of kidney; Z90.5 Acquired absence of kidney
CPT/HCPCS: 36415; 70450; 71045; 80053; 81001; 82948; 83036; 83605; 83735; 84145; 84484; 85025; 85610; 85651; 85730; 87040; 87070; 96361; 96365; 96366; 96372; 97110; 97116; 97162; 99285; A4421; A6212; A6213; A6446; G0378; J0696; J1815; J7030; 93005

== ENCOUNTER 2018-05-06 02:03 | Inpatient (IN) | payer MEDICARE ==
[~2018-05-06] VITALS: Ht 182.9 cm; Wt 100.4 kg
[2018-05-06] VITALS (20 sets, daily range): BP systolic 95–155; BP diastolic 51–88
[~2018-05-06 02:03] MED LIST changes: +FURO80TA3; +TAMS0.4C32
[2018-05-06] MEDS ORDERED: etomidate 2mg/ml inj. IV ONE (02:15)
[2018-05-06] MEDS ORDERED: rocuronium 10mg/ml inj IV ONE ×2 (02:15→14:00)
[2018-05-06] MEDS ORDERED: midazolam 100mg in NS 100ml 100 ML IV PRN (02:20)
[2018-05-06] MEDS ORDERED: iohexol 300mg/ml 100ml inj. ONE (02:51)
[2018-05-06 02:55] LABS: ABG BASE EXCESS -5.8 mmol/L (-2.0-3.0); ABG HCO3 18.8 mmol/L (22.0-26.0); ABG OXYGEN SATURATION 99.1 % (95-98); ABG PH (T) 7.381 (7.350-7.450); ABG PO2 (T) 304.7 mmHg (83-108); ALLEN'S TEST Positive; FCOHb 0.3 % (0.5-1.5); FMetHb 0.2 % (0.3-1.12); FO2Hb 98.6 % (94-100); MINUTE VOLUME 7 L/min; PATIENT TEMPERATURE 35.8; PEEP 5 cm H2O; RESPIRATORY RATE 16 b/min; RESPIRATORY RATE (OBSERVED) 16 b/min; TIDAL VOLUME 450 mL; TOTAL HEMOGLOBIN 10.4 G/dl (14.0-18.0)
[2018-05-06 03:13] LABS: BASOPHILS % (AUTO) 0.2 % (0-1); EOSINOPHILS % (AUTO) 0.9 % (0-6); HEMATOCRIT 28.4 % (42.0-52.0); HEMOGLOBIN 9.6 g/dl (14.0-17.9); LYMPHOCYTES # (AUTO) 0.3 X10'3 (1.1-4.8); LYMPHOCYTES % (AUTO) 6.6 % (21-51); MEAN CORPUSCULAR HEMOGLOBIN 28.2 PG (27.0-31.0); MEAN CORPUSCULAR HGB CONC 33.7 % (33.0-36.5); MEAN CORPUSCULAR VOLUME 83.7 FL (78-98); MEAN PLATELET VOLUME 8.6 FL (7.4-10.4); MONOCYTES # (AUTO) 0.4 X10'3 (0-0.9); MONOCYTES % (AUTO) 7.4 % (2-12); NEUTROPHILS # (AUTO) 4.3 X10'3 (1.8-7.7); NEUTROPHILS % (AUTO) 84.9 % (42-75); PLATELET COUNT 130 X10'3 (140-440); RED BLOOD COUNT 3.39 X10'6 (4.70-6.10); RED CELL DISTRIBUTION WIDTH 14.4 % (11.5-14.5)
[2018-05-06 03:16] LABS: PARTIAL THROMBOPLASTIN TIME 27 SECONDS (22-32); PROTHROMBIN TIME 10.4 SECONDS (9.0-12.0)
[2018-05-06 03:20] LABS: CLARITY,URINE SLIGHTLY CLOUDY (Clear); COLOR,URINE YELLOW (Yellow); GLUCOSE, URINE 100 mg/dl (Neg); KETONES,URINE NEGATIVE (Neg); LEUKOCYTE ESTERASE ,URINE NEGATIVE (Neg); NITRITES, URINE NEGATIVE (Neg); OCCULT BLOOD,URINE MODERATE (Neg); PROTEIN,URINE 100 mg/dl (Neg); UROBILINOGEN,URINE 0.2 E.U/dL (0.2-1.0)
[2018-05-06 03:21] LABS: ALANINE AMINOTRANSFERASE 22 U/L (12-78); ALBUMIN 2.7 G/DL (3.4-5.0); ALBUMIN/GLOBULIN RATIO 0.8 (1.1-1.5); ALKALINE PHOSPHATASE 67 IU/L (46-116); ANION GAP 16 (8-16); ASPARTATE AMINO TRANSFERASE 20 U/L (10-37); BILIRUBIN,TOTAL 0.6 MG/DL (0.1-1.0); BLOOD UREA NITROGEN 80 MG/DL (7-18); BUN/CREATININE RATIO 17.8 (5.4-32.0); CALCIUM 8.5 MG/DL (8.5-10.1); CHLORIDE 107 MMOL/L (99-107); CREATININE 4.49 MG/DL (0.60-1.10); GLUCOSE 208 MG/DL (70-104); POTASSIUM 4.8 MMOL/L (3.5-5.1); SODIUM 145 MMOL/L (135-145); TOTAL CARBON DIOXIDE 22.3 MMOL/L (24-32); TOTAL PROTEIN 5.9 G/DL (6.4-8.2); eGFR 13 ML/MIN
[2018-05-06 03:27] LABS: UA COLLECTION TYPE FOLEY CATH
[2018-05-06] MEDS ORDERED: FLO0.4C PO (03:52)
[2018-05-06 03:54] LABS: FINE GRANULAR CAST 0-3 /LPF (NEGATIVE); SQUAMOUS EPITHELIAL CELL,UR FEW /LPF (FEW)
[2018-05-06 03:58] LABS: BACTERIA,URINE NONE SEEN /HPF (Neg); MUCUS STRANDS MODERATE /LPF (Neg); RBC,URINE 0-2 /HPF (0-2); WBC,URINE 0-4 /HPF (0-4)
[2018-05-06 04:01] LABS: AMORPHOUS URATES 2+
[2018-05-06 05:19] LABS: TROPONIN I < 0.04 NG/ML (0.0-0.05)
[2018-05-06] MEDS ORDERED: ipratropium/albuterol 3ml nebule NEB PRN (05:25)
[2018-05-06] MEDS ORDERED: dextrose ORAL solution 15 GM/59 ML bottle PO PRN ×2 (05:25)
[2018-05-06] MEDS ORDERED: insulin Lispro (HumaLOG) vial - multi-dose SQ SCH (05:25)
[2018-05-06] MEDS ORDERED: MESSAGE TO PHARMACY PO ONE (05:25)
[2018-05-06] MEDS ORDERED: dextrose 50%-water 50ml dispensing syringe IV PRN ×2 (05:25)
[2018-05-06] MEDS ORDERED: glucagon, human recombinant 1mg kit SUBCUT PRN (05:25)
[2018-05-06] MEDS ORDERED: ondansetron/PF 4mg/2ml inj IV PRN (05:25)
[2018-05-06] MEDS: normal saline 1000ml 1,000 ML IV SCH ×2 (05:55→16:17)
[2018-05-06 06:00] LABS: D-DIMER 2.99 MG/L FEU (0-0.50)
[2018-05-06] MEDS ORDERED: LORazepam 2 mg/ml vial IV PRN (06:00)
[2018-05-06] MEDS ORDERED: heparin, porcine 5000 units/ml vial SQ SCH (08:00)
[2018-05-06] MEDS ORDERED: piperacillin/tazo 3.375gm/50ml 50 ML IV ONE (09:30)
[2018-05-06] MEDS ORDERED: fentaNYL/PF 50MCG/1 ML 2ML syringe IV PRN (09:30)
[2018-05-06] MEDS ORDERED: heparin, porcine 5000 units/ml vial SQ ONE (09:35)
[2018-05-06] MEDS: famotidine/PF 10 mg/ml inj IV SCH ×2 (09:53→21:35)
[2018-05-06] MEDS ORDERED: etomidate 2mg/ml inj. ONE (14:00)
[2018-05-06] MEDS ORDERED: sod chloride 0.9% 10ml flush syringe IV ONE (14:00)
[2018-05-06] MEDS: piperacillin/tazobactam inj. 2.25 GM in normal saline 50ml IV IV SCH (16:17)
[2018-05-06] MEDS: heparin, porcine 5000 units/ml vial SQ SCH (16:17)
[2018-05-06] MEDS: insulin glargine (Lantus) pen - multi-dose SQ SCH (21:00)
[2018-05-06] MEDS: lactobacillus rhamnosus 10,000 MMU CELLS/CAPSULE PO SCH (21:35)
[2018-05-07] VITALS (24 sets, daily range): BP systolic 86–165; BP diastolic 17–81
[2018-05-07] MEDS: piperacillin/tazobactam inj. 2.25 GM in normal saline 50ml IV IV SCH ×3 (00:22→17:33)
[2018-05-07] MEDS: heparin, porcine 5000 units/ml vial SQ SCH ×3 (00:22→15:32)
[2018-05-07 03:09] LABS: ALANINE AMINOTRANSFERASE 20 U/L (12-78); ALBUMIN 2.4 G/DL (3.4-5.0); ALBUMIN/GLOBULIN RATIO 0.8 (1.1-1.5); ALKALINE PHOSPHATASE 59 IU/L (46-116); ANION GAP 12 (8-16); ASPARTATE AMINO TRANSFERASE 43 U/L (10-37); BILIRUBIN,TOTAL 0.7 MG/DL (0.1-1.0); BLOOD UREA NITROGEN 78 MG/DL (7-18); BUN/CREATININE RATIO 15.4 (5.4-32.0); CALCIUM 8.1 MG/DL (8.5-10.1); CHLORIDE 111 MMOL/L (99-107); CREATININE 5.06 MG/DL (0.60-1.10); GLUCOSE 130 MG/DL (70-104); MAGNESIUM 1.8 MG/DL (1.5-2.4); PHOSPHORUS 4.7 MG/DL (2.3-4.5); POTASSIUM 4.9 MMOL/L (3.5-5.1); SODIUM 146 MMOL/L (135-145); TOTAL CARBON DIOXIDE 23.4 MMOL/L (24-32); TOTAL PROTEIN 5.4 G/DL (6.4-8.2); eGFR 11 ML/MIN
[2018-05-07 03:11] LABS: BASOPHILS % (AUTO) 0.4 % (0-1); EOSINOPHILS # (AUTO) 0.1 X10'3 (0-0.9); HEMATOCRIT 25.2 % (42.0-52.0); HEMOGLOBIN 8.7 g/dl (14.0-17.9); LYMPHOCYTES # (AUTO) 0.8 X10'3 (1.1-4.8); MEAN CORPUSCULAR HEMOGLOBIN 28.5 PG (27.0-31.0); MEAN CORPUSCULAR HGB CONC 34.4 % (33.0-36.5); MEAN CORPUSCULAR VOLUME 83.1 FL (78-98); MEAN PLATELET VOLUME 8.4 FL (7.4-10.4); MONOCYTES # (AUTO) 0.5 X10'3 (0-0.9); MONOCYTES % (AUTO) 10.6 % (2-12); NEUTROPHILS # (AUTO) 3.6 X10'3 (1.8-7.7); PLATELET COUNT 111 X10'3 (140-440); RED BLOOD COUNT 3.03 X10'6 (4.70-6.10); RED CELL DISTRIBUTION WIDTH 14.5 % (11.5-14.5)
[2018-05-07] MEDS: normal saline 1000ml 1,000 ML IV SCH (03:18)
[2018-05-07 03:42] LABS: PARTIAL THROMBOPLASTIN TIME 33 SECONDS (22-32); PROTHROMBIN TIME 10.7 SECONDS (9.0-12.0)
[2018-05-07 04:06] LABS: ABG BASE EXCESS -4.5 mmol/L (-2.0-3.0); ABG HCO3 19.9 mmol/L (22.0-26.0); ABG OXYGEN SATURATION 96.3 % (95-98); ABG PCO2 (T) 34.7 mmHg (35.0-48.0); ABG PH (T) 7.379 (7.350-7.450); ABG PO2 (T) 91.8 mmHg (83-108); ALLEN'S TEST Positive; FCOHb 0.3 % (0.5-1.5); MINUTE VOLUME 8 L/min; PATIENT TEMPERATURE 37.4; PEEP 5 cm H2O; RESPIRATORY RATE 16 b/min; RESPIRATORY RATE (OBSERVED) 16 b/min; TIDAL VOLUME 450 mL; TOTAL HEMOGLOBIN 9.2 G/dl (14.0-18.0)
[2018-05-07] MEDS: famotidine/PF 10 mg/ml inj IV SCH ×2 (07:59→20:05)
[2018-05-07] MEDS: mineral oil/petrolatum ophthal oint EACHEYE SCH ×3 (08:00→20:21)
[2018-05-07] MEDS: tamsulosin 0.4mg capsule PO SCH (08:00)
[2018-05-07] MEDS: lactobacillus rhamnosus 10,000 MMU CELLS/CAPSULE PO SCH ×2 (08:00→20:04)
[2018-05-07] MEDS ORDERED: insulin regular, human vial - multi-dose SQ SCH (10:36)
[2018-05-07] MEDS: dextrose 5%-water 1,000 ML IV SCH (11:20)
[2018-05-07] MEDS ORDERED: vancomycin/NS 1 GM ADD-VANTAGE 250 ML IV ONE (12:40)
[2018-05-07] MEDS: insulin glargine (Lantus) pen - multi-dose SQ SCH (20:08)
[2018-05-08] VITALS (24 sets, daily range): BP systolic 97–182; BP diastolic 48–86
[2018-05-08] MEDS: heparin, porcine 5000 units/ml vial SQ SCH ×3 (00:54→16:03)
[2018-05-08] MEDS: piperacillin/tazobactam inj. 2.25 GM in normal saline 50ml IV IV SCH ×3 (00:54→16:03)
[2018-05-08] MEDS: mineral oil/petrolatum ophthal oint EACHEYE SCH ×4 (02:00→19:24)
[2018-05-08] MEDS: VANCOMYCIN LEVEL IV SCH (03:00)
[2018-05-08 03:21] LABS: BASOPHILS % (AUTO) 0.5 % (0-1); EOSINOPHILS # (AUTO) 0.2 X10'3 (0-0.9); EOSINOPHILS % (AUTO) 3.7 % (0-6); HEMATOCRIT 23.8 % (42.0-52.0); HEMOGLOBIN 7.9 g/dl (14.0-17.9); LYMPHOCYTES # (AUTO) 0.5 X10'3 (1.1-4.8); LYMPHOCYTES % (AUTO) 11.2 % (21-51); MEAN CORPUSCULAR HGB CONC 33.4 % (33.0-36.5); MEAN CORPUSCULAR VOLUME 83.9 FL (78-98); MEAN PLATELET VOLUME 8.4 FL (7.4-10.4); MONOCYTES # (AUTO) 0.4 X10'3 (0-0.9); MONOCYTES % (AUTO) 10.8 % (2-12); NEUTROPHILS # (AUTO) 3.1 X10'3 (1.8-7.7); NEUTROPHILS % (AUTO) 73.8 % (42-75); PLATELET COUNT 98 X10'3 (140-440); RED BLOOD COUNT 2.84 X10'6 (4.70-6.10); RED CELL DISTRIBUTION WIDTH 14.4 % (11.5-14.5); WHITE BLOOD COUNT 4.2 X10'3 (4.5-11.0)
[2018-05-08 03:30] LABS: INR 1.1 INR; PARTIAL THROMBOPLASTIN TIME 36 SECONDS (22-32); PROTHROMBIN TIME 10.9 SECONDS (9.0-12.0)
[2018-05-08 03:30] LABS: ABG BASE EXCESS -4.2 mmol/L (-2.0-3.0); ABG HCO3 20.6 mmol/L (22.0-26.0); ABG OXYGEN SATURATION 86.7 % (95-98); ABG PCO2 (T) 36.4 mmHg (35.0-48.0); ABG PO2 (T) 54.5 mmHg (83-108); ALLEN'S TEST Positive; FCOHb 0.3 % (0.5-1.5); FMetHb 0.2 % (0.3-1.12); FO2Hb 86.3 % (94-100); MINUTE VOLUME 8 L/min; PEEP 5 cm H2O; RESPIRATORY RATE 16 b/min; RESPIRATORY RATE (OBSERVED) 16 b/min; TIDAL VOLUME 450 mL; TOTAL HEMOGLOBIN 8.8 G/dl (14.0-18.0)
[2018-05-08 03:35] LABS: ALANINE AMINOTRANSFERASE 19 U/L (12-78); ALBUMIN 2.3 G/DL (3.4-5.0); ALBUMIN/GLOBULIN RATIO 0.7 (1.1-1.5); ALKALINE PHOSPHATASE 55 IU/L (46-116); ANION GAP 12 (8-16); ASPARTATE AMINO TRANSFERASE 24 U/L (10-37); BILIRUBIN,TOTAL 0.7 MG/DL (0.1-1.0); BLOOD UREA NITROGEN 72 MG/DL (7-18); CALCIUM 8.8 MG/DL (8.5-10.1); CHLORIDE 112 MMOL/L (99-107); CREATININE 5.15 MG/DL (0.60-1.10); GLUCOSE 149 MG/DL (70-104); MAGNESIUM 1.8 MG/DL (1.5-2.4); PHOSPHORUS 4.2 MG/DL (2.3-4.5); POTASSIUM 4.3 MMOL/L (3.5-5.1); PREALBUMIN 17.3 MG/DL (19-36); SODIUM 145 MMOL/L (135-145); TOTAL CARBON DIOXIDE 21.3 MMOL/L (24-32); TOTAL PROTEIN 5.4 G/DL (6.4-8.2); VANCOMYCIN,RANDOM 11.7 UG/ML; eGFR 11 ML/MIN
[2018-05-08] MEDS ORDERED: lactulose 20gm/30ml cup PO PRN (05:25)
[2018-05-08] MEDS ORDERED: vancomycin inj 1,250 MG in normal saline 250ml IV soln 250 ML IV ONE (06:40)
[2018-05-08] MEDS: dextrose 5%-water 1,000 ML IV SCH (07:20)
[2018-05-08] MEDS: famotidine/PF 10 mg/ml inj IV SCH ×2 (07:27→19:51)
[2018-05-08] MEDS: lactobacillus rhamnosus 10,000 MMU CELLS/CAPSULE PO SCH ×2 (07:27→19:51)
[2018-05-08] MEDS: tamsulosin 0.4mg capsule PO SCH (07:28)
[2018-05-08] MEDS ORDERED: vancomycin inj 1,250 MG in normal saline 250ml IV soln 250 ML IV PRN (08:00)
[2018-05-08] MEDS ORDERED: racepinephrine 11.25mg/0.5ml nebule NEB PRN (11:05)
[2018-05-08] MEDS ORDERED: ipratropium/albuterol 3ml nebule NEB PRN (11:05)
[2018-05-08] MEDS: sodium chloride 0.45% 1,000 ML IV SCH ×2 (11:30→19:51)
[2018-05-08 13:54] LABS: CLARITY,URINE CLEAR (Clear); COLOR,URINE YELLOW (Yellow); GLUCOSE, URINE 100 mg/dl (Neg); KETONES,URINE NEGATIVE (Neg); LEUKOCYTE ESTERASE ,URINE NEGATIVE (Neg); NITRITES, URINE NEGATIVE (Neg); OCCULT BLOOD,URINE MODERATE (Neg); PROTEIN,URINE >=300 mg/dl (Neg); UROBILINOGEN,URINE 0.2 E.U/dL (0.2-1.0)
[2018-05-08 14:06] LABS: UA COLLECTION TYPE NON-SPECIFIED
[2018-05-08 14:07] LABS: WBC,URINE NONE SEEN /HPF (0-4)
[2018-05-08 14:08] LABS: BACTERIA,URINE NONE SEEN /HPF (Neg); SQUAMOUS EPITHELIAL CELL,UR NONE SEEN /LPF (FEW)
[2018-05-08 14:09] LABS: HYALINE CASTS 0-3 /LPF (NEGATIVE)
[2018-05-08 15:12] LABS: UA EOSINOPHILS FEW EOS /HPF
[2018-05-08] MEDS ORDERED: amLODIPine 5mg tablet PO ONE (15:40)
[2018-05-08] MEDS: ipratropium/albuterol 3ml nebule NEB SCH ×2 (16:12→20:59)
[2018-05-08] MEDS: insulin glargine (Lantus) pen - multi-dose SQ SCH (20:17)
[2018-05-09] VITALS (24 sets, daily range): BP systolic 128–186; BP diastolic 63–85
[2018-05-09] MEDS: piperacillin/tazobactam inj. 2.25 GM in normal saline 50ml IV IV SCH ×3 (00:07→16:41)
[2018-05-09] MEDS: heparin, porcine 5000 units/ml vial SQ SCH ×3 (00:08→16:42)
[2018-05-09] MEDS: mineral oil/petrolatum ophthal oint EACHEYE SCH ×4 (00:25→20:38)
[2018-05-09] MEDS: VANCOMYCIN LEVEL IV SCH (00:28)
[2018-05-09 02:39] LABS: PARTIAL THROMBOPLASTIN TIME 35 SECONDS (22-32); PROTHROMBIN TIME 10.3 SECONDS (9.0-12.0)
[2018-05-09 02:44] LABS: ALANINE AMINOTRANSFERASE 35 U/L (12-78); ALBUMIN 2.3 G/DL (3.4-5.0); ALBUMIN/GLOBULIN RATIO 0.7 (1.1-1.5); ALKALINE PHOSPHATASE 65 IU/L (46-116); ANION GAP 10 (8-16); ASPARTATE AMINO TRANSFERASE 38 U/L (10-37); BILIRUBIN,TOTAL 0.7 MG/DL (0.1-1.0); BLOOD UREA NITROGEN 62 MG/DL (7-18); BUN/CREATININE RATIO 12.8 (5.4-32.0); CALCIUM 8.4 MG/DL (8.5-10.1); CHLORIDE 111 MMOL/L (99-107); CREATININE 4.83 MG/DL (0.60-1.10); GLUCOSE 108 MG/DL (70-104); MAGNESIUM 1.8 MG/DL (1.5-2.4); PHOSPHORUS 4.1 MG/DL (2.3-4.5); POTASSIUM 4.3 MMOL/L (3.5-5.1); SODIUM 146 MMOL/L (135-145); TOTAL CARBON DIOXIDE 24.9 MMOL/L (24-32); TOTAL PROTEIN 5.7 G/DL (6.4-8.2); VANCOMYCIN,RANDOM 20.6 UG/ML; eGFR 12 ML/MIN
[2018-05-09 03:06] LABS: BASOPHILS % (AUTO) 0.4 % (0-1); EOSINOPHILS # (AUTO) 0.2 X10'3 (0-0.9); EOSINOPHILS % (AUTO) 5.8 % (0-6); HEMATOCRIT 24.4 % (42.0-52.0); HEMOGLOBIN 7.6 g/dl (14.0-17.9); LYMPHOCYTES # (AUTO) 0.6 X10'3 (1.1-4.8); LYMPHOCYTES % (AUTO) 13.9 % (21-51); MEAN CORPUSCULAR HEMOGLOBIN 25.9 PG (27.0-31.0); MEAN CORPUSCULAR HGB CONC 31.3 % (33.0-36.5); MEAN CORPUSCULAR VOLUME 82.8 FL (78-98); MEAN PLATELET VOLUME 8.1 FL (7.4-10.4); MONOCYTES # (AUTO) 0.5 X10'3 (0-0.9); MONOCYTES % (AUTO) 11.6 % (2-12); NEUTROPHILS % (AUTO) 68.3 % (42-75); PLATELET COUNT 109 X10'3 (140-440); RED BLOOD COUNT 2.94 X10'6 (4.70-6.10); RED CELL DISTRIBUTION WIDTH 13.9 % (11.5-14.5); WHITE BLOOD COUNT 4.3 X10'3 (4.5-11.0)
[2018-05-09] MEDS: ipratropium/albuterol 3ml nebule NEB SCH ×4 (03:12→20:57)
[2018-05-09] MEDS: lactobacillus rhamnosus 10,000 MMU CELLS/CAPSULE PO SCH ×2 (07:59→20:38)
[2018-05-09] MEDS: amLODIPine 5mg tablet PO SCH (07:59)
[2018-05-09] MEDS: famotidine/PF 10 mg/ml inj IV SCH (08:00)
[2018-05-09] MEDS: pregabalin 75mg capsule PO SCH (08:00)
[2018-05-09] MEDS: tamsulosin 0.4mg capsule PO SCH (08:00)
[2018-05-09] MEDS: sodium chloride 0.45% 1,000 ML IV SCH ×2 (08:00→17:20)
[2018-05-09] MEDS: pregabalin 25mg capsule PO SCH (08:00)
[2018-05-09] MEDS: insulin glargine (Lantus) pen - multi-dose SQ SCH ×2 (09:01→20:57)
[2018-05-09] MEDS: insulin Lispro (HumaLOG) vial - multi-dose SQ SCH (18:19)
[2018-05-09] MEDS: famotidine 20mg tablet PO SCH (20:38)
[2018-05-10] VITALS (23 sets, daily range): BP systolic 94–166; BP diastolic 42–85
[2018-05-10] MEDS: piperacillin/tazobactam inj. 2.25 GM in normal saline 50ml IV IV SCH ×4 (00:57→23:05)
[2018-05-10] MEDS: heparin, porcine 5000 units/ml vial SQ SCH ×4 (00:57→23:06)
[2018-05-10] MEDS: mineral oil/petrolatum ophthal oint EACHEYE SCH ×4 (02:00→20:00)
[2018-05-10] MEDS: VANCOMYCIN LEVEL IV SCH (03:00)
[2018-05-10] MEDS: ipratropium/albuterol 3ml nebule NEB SCH ×4 (03:20→20:39)
[2018-05-10] MEDS: sodium chloride 0.45% 1,000 ML IV SCH ×3 (03:20→23:05)
[2018-05-10 04:10] LABS: BASOPHILS % (AUTO) 0.5 % (0-1); EOSINOPHILS # (AUTO) 0.3 X10'3 (0-0.9); EOSINOPHILS % (AUTO) 6.4 % (0-6); HEMATOCRIT 24.6 % (42.0-52.0); LYMPHOCYTES # (AUTO) 0.5 X10'3 (1.1-4.8); LYMPHOCYTES % (AUTO) 12.8 % (21-51); MEAN CORPUSCULAR HEMOGLOBIN 26.9 PG (27.0-31.0); MEAN CORPUSCULAR HGB CONC 32.5 % (33.0-36.5); MEAN CORPUSCULAR VOLUME 82.9 FL (78-98); MEAN PLATELET VOLUME 7.8 FL (7.4-10.4); MONOCYTES # (AUTO) 0.5 X10'3 (0-0.9); MONOCYTES % (AUTO) 12.4 % (2-12); NEUTROPHILS # (AUTO) 2.9 X10'3 (1.8-7.7); NEUTROPHILS % (AUTO) 67.9 % (42-75); PLATELET COUNT 115 X10'3 (140-440); RED BLOOD COUNT 2.97 X10'6 (4.70-6.10); RED CELL DISTRIBUTION WIDTH 14.3 % (11.5-14.5); WHITE BLOOD COUNT 4.2 X10'3 (4.5-11.0)
[2018-05-10 04:22] LABS: PARTIAL THROMBOPLASTIN TIME 31 SECONDS (22-32); PROTHROMBIN TIME 10.3 SECONDS (9.0-12.0)
[2018-05-10 04:23] LABS: ALANINE AMINOTRANSFERASE 33 U/L (12-78); ALBUMIN 2.3 G/DL (3.4-5.0); ALBUMIN/GLOBULIN RATIO 0.7 (1.1-1.5); ALKALINE PHOSPHATASE 65 IU/L (46-116); ANION GAP 10 (8-16); ASPARTATE AMINO TRANSFERASE 25 U/L (10-37); BILIRUBIN,TOTAL 0.5 MG/DL (0.1-1.0); BLOOD UREA NITROGEN 51 MG/DL (7-18); BUN/CREATININE RATIO 11.1 (5.4-32.0); CALCIUM 8.3 MG/DL (8.5-10.1); CHLORIDE 110 MMOL/L (99-107); CREATININE 4.61 MG/DL (0.60-1.10); GLUCOSE 88 MG/DL (70-104); MAGNESIUM 1.7 MG/DL (1.5-2.4); PHOSPHORUS 4.9 MG/DL (2.3-4.5); POTASSIUM 4.6 MMOL/L (3.5-5.1); SODIUM 143 MMOL/L (135-145); TOTAL CARBON DIOXIDE 22.6 MMOL/L (24-32); TOTAL PROTEIN 5.6 G/DL (6.4-8.2); VANCOMYCIN,RANDOM 15.2 UG/ML; eGFR 12 ML/MIN
[2018-05-10] MEDS: pregabalin 25mg capsule PO SCH (08:31)
[2018-05-10] MEDS: amLODIPine 5mg tablet PO SCH (08:32)
[2018-05-10] MEDS: famotidine 20mg tablet PO SCH ×2 (08:32→20:00)
[2018-05-10] MEDS: tamsulosin 0.4mg capsule PO SCH (08:32)
[2018-05-10] MEDS: lactobacillus rhamnosus 10,000 MMU CELLS/CAPSULE PO SCH ×2 (08:32→20:00)
[2018-05-10] MEDS: pregabalin 75mg capsule PO SCH (08:32)
[2018-05-10] MEDS: insulin glargine (Lantus) pen - multi-dose SQ SCH ×2 (08:36→20:41)
[2018-05-10] MEDS: insulin Lispro (HumaLOG) vial - multi-dose SQ SCH ×2 (08:37→14:30)
[2018-05-11] MEDS: mineral oil/petrolatum ophthal oint EACHEYE SCH ×2 (02:00→07:48)
[2018-05-11] MEDS: ipratropium/albuterol 3ml nebule NEB SCH ×4 (02:24→20:44)
[2018-05-11 03:00] VITALS: BP 124/42
[2018-05-11] MEDS: VANCOMYCIN LEVEL IV SCH (03:00)
[2018-05-11 05:28] LABS: BASOPHILS % (AUTO) 0.6 % (0-1); EOSINOPHILS # (AUTO) 0.2 X10'3 (0-0.9); HEMATOCRIT 23.7 % (42.0-52.0); HEMOGLOBIN 7.8 g/dl (14.0-17.9); LYMPHOCYTES # (AUTO) 0.5 X10'3 (1.1-4.8); LYMPHOCYTES % (AUTO) 15.5 % (21-51); MEAN CORPUSCULAR HEMOGLOBIN 27.7 PG (27.0-31.0); MEAN CORPUSCULAR HGB CONC 33.1 % (33.0-36.5); MEAN CORPUSCULAR VOLUME 83.6 FL (78-98); MEAN PLATELET VOLUME 7.6 FL (7.4-10.4); MONOCYTES # (AUTO) 0.4 X10'3 (0-0.9); MONOCYTES % (AUTO) 11.6 % (2-12); NEUTROPHILS # (AUTO) 2.4 X10'3 (1.8-7.7); NEUTROPHILS % (AUTO) 66.3 % (42-75); PLATELET COUNT 96 X10'3 (140-440); RED BLOOD COUNT 2.83 X10'6 (4.70-6.10); WHITE BLOOD COUNT 3.5 X10'3 (4.5-11.0)
[2018-05-11 06:00] VITALS: BP 152/64
[2018-05-11 06:02] LABS: ALANINE AMINOTRANSFERASE 32 U/L (12-78); ALBUMIN 2.2 G/DL (3.4-5.0); ALBUMIN/GLOBULIN RATIO 0.7 (1.1-1.5); ALKALINE PHOSPHATASE 63 IU/L (46-116); ANION GAP 13 (8-16); ASPARTATE AMINO TRANSFERASE 22 U/L (10-37); BILIRUBIN,TOTAL 0.4 MG/DL (0.1-1.0); BLOOD UREA NITROGEN 48 MG/DL (7-18); BUN/CREATININE RATIO 10.9 (5.4-32.0); CALCIUM 8.2 MG/DL (8.5-10.1); CHLORIDE 110 MMOL/L (99-107); CREATININE 4.42 MG/DL (0.60-1.10); GLUCOSE 82 MG/DL (70-104); MAGNESIUM 1.7 MG/DL (1.5-2.4); PHOSPHORUS 5.1 MG/DL (2.3-4.5); POTASSIUM 4.6 MMOL/L (3.5-5.1); PREALBUMIN 18.7 MG/DL (19-36); SODIUM 143 MMOL/L (135-145); TOTAL CARBON DIOXIDE 20.2 MMOL/L (24-32); TOTAL PROTEIN 5.5 G/DL (6.4-8.2); eGFR 13 ML/MIN
[2018-05-11] MEDS: tamsulosin 0.4mg capsule PO SCH (07:45)
[2018-05-11] MEDS: amLODIPine 5mg tablet PO SCH (07:45)
[2018-05-11] MEDS: famotidine 20mg tablet PO SCH ×2 (07:45→21:22)
[2018-05-11] MEDS: pregabalin 25mg capsule PO SCH (07:46)
[2018-05-11] MEDS: lactobacillus rhamnosus 10,000 MMU CELLS/CAPSULE PO SCH ×2 (07:46→21:22)
[2018-05-11] MEDS: pregabalin 75mg capsule PO SCH (07:47)
[2018-05-11] MEDS: heparin, porcine 5000 units/ml vial SQ SCH ×2 (07:48→16:42)
[2018-05-11] MEDS: piperacillin/tazobactam inj. 2.25 GM in normal saline 50ml IV IV SCH ×2 (08:29→16:41)
[2018-05-11] MEDS: insulin Lispro (HumaLOG) vial - multi-dose SQ SCH ×2 (08:33→12:53)
[2018-05-11] MEDS: insulin glargine (Lantus) pen - multi-dose SQ SCH ×2 (08:35→21:38)
[2018-05-11 11:12] VITALS: BP 138/63
[2018-05-11] MEDS: sodium chloride 0.45% 1,000 ML IV SCH ×2 (12:51→19:20)
[2018-05-11 15:00] VITALS: BP 150/63
[2018-05-11 19:00] VITALS: BP 146/48
[2018-05-11 23:00] VITALS: BP 146/56
[2018-05-12] MEDS: sodium chloride 0.45% 1,000 ML IV SCH ×2 (00:52→13:50)
[2018-05-12] MEDS: piperacillin/tazobactam inj. 2.25 GM in normal saline 50ml IV IV SCH ×3 (00:53→16:37)
[2018-05-12] MEDS: heparin, porcine 5000 units/ml vial SQ SCH ×3 (01:04→16:37)
[2018-05-12 03:00] VITALS: BP 152/79
[2018-05-12] MEDS: ipratropium/albuterol 3ml nebule NEB SCH ×4 (03:16→20:23)
[2018-05-12 05:55] LABS: BASOPHILS % (AUTO) 0.7 % (0-1); EOSINOPHILS # (AUTO) 0.3 X10'3 (0-0.9); EOSINOPHILS % (AUTO) 5.9 % (0-6); HEMATOCRIT 22.5 % (42.0-52.0); HEMOGLOBIN 7.7 g/dl (14.0-17.9); LYMPHOCYTES # (AUTO) 0.6 X10'3 (1.1-4.8); LYMPHOCYTES % (AUTO) 13.9 % (21-51); MEAN CORPUSCULAR HEMOGLOBIN 28.3 PG (27.0-31.0); MEAN CORPUSCULAR HGB CONC 34.3 % (33.0-36.5); MEAN CORPUSCULAR VOLUME 82.6 FL (78-98); MONOCYTES # (AUTO) 0.4 X10'3 (0-0.9); MONOCYTES % (AUTO) 10.1 % (2-12); NEUTROPHILS # (AUTO) 3.1 X10'3 (1.8-7.7); NEUTROPHILS % (AUTO) 69.4 % (42-75); PLATELET COUNT 90 X10'3 (140-440); RED BLOOD COUNT 2.72 X10'6 (4.70-6.10); RED CELL DISTRIBUTION WIDTH 14.1 % (11.5-14.5); WHITE BLOOD COUNT 4.4 X10'3 (4.5-11.0)
[2018-05-12 06:00] VITALS: BP 161/53
[2018-05-12 06:15] LABS: ALANINE AMINOTRANSFERASE 31 U/L (12-78); ALBUMIN 2.2 G/DL (3.4-5.0); ALBUMIN/GLOBULIN RATIO 0.7 (1.1-1.5); ALKALINE PHOSPHATASE 62 IU/L (46-116); ANION GAP 14 (8-16); ASPARTATE AMINO TRANSFERASE 18 U/L (10-37); BILIRUBIN,TOTAL 0.4 MG/DL (0.1-1.0); BLOOD UREA NITROGEN 43 MG/DL (7-18); BUN/CREATININE RATIO 10.2 (5.4-32.0); CALCIUM 8.1 MG/DL (8.5-10.1); CHLORIDE 108 MMOL/L (99-107); GLUCOSE 79 MG/DL (70-104); MAGNESIUM 1.6 MG/DL (1.5-2.4); PHOSPHORUS 4.9 MG/DL (2.3-4.5); POTASSIUM 4.6 MMOL/L (3.5-5.1); SODIUM 141 MMOL/L (135-145); TOTAL CARBON DIOXIDE 19.3 MMOL/L (24-32); TOTAL PROTEIN 5.5 G/DL (6.4-8.2); eGFR 14 ML/MIN
[2018-05-12] MEDS: famotidine 20mg tablet PO SCH ×2 (09:09→21:28)
[2018-05-12] MEDS: pregabalin 75mg capsule PO SCH (09:09)
[2018-05-12] MEDS: tamsulosin 0.4mg capsule PO SCH (09:10)
[2018-05-12] MEDS: lactobacillus rhamnosus 10,000 MMU CELLS/CAPSULE PO SCH ×2 (09:10→21:28)
[2018-05-12] MEDS: amLODIPine 5mg tablet PO SCH (09:10)
[2018-05-12] MEDS: pregabalin 25mg capsule PO SCH (09:10)
[2018-05-12] MEDS: insulin glargine (Lantus) pen - multi-dose SQ SCH ×2 (09:16→20:00)
[2018-05-12 11:00] VITALS: BP 175/69
[2018-05-12] MEDS: insulin Lispro (HumaLOG) vial - multi-dose SQ SCH (13:48)
[2018-05-12 15:00] VITALS: BP 139/63
[2018-05-12 19:00] VITALS: BP 141/59
[2018-05-13] MEDS: piperacillin/tazobactam inj. 2.25 GM in normal saline 50ml IV IV SCH ×3 (00:27→16:45)
[2018-05-13] MEDS: heparin, porcine 5000 units/ml vial SQ SCH ×3 (00:27→16:45)
[2018-05-13] MEDS: ipratropium/albuterol 3ml nebule NEB SCH ×3 (02:42→21:27)
[2018-05-13 03:00] VITALS: BP 150/61
[2018-05-13] MEDS: sodium chloride 0.45% 1,000 ML IV SCH ×3 (04:20→16:49)
[2018-05-13 06:00] VITALS: BP 153/54
[2018-05-13 06:37] LABS: BASOPHILS % (AUTO) 0.5 % (0-1); EOSINOPHILS # (AUTO) 0.3 X10'3 (0-0.9); EOSINOPHILS % (AUTO) 4.9 % (0-6); HEMATOCRIT 25.9 % (42.0-52.0); HEMOGLOBIN 8.9 g/dl (14.0-17.9); LYMPHOCYTES # (AUTO) 0.7 X10'3 (1.1-4.8); LYMPHOCYTES % (AUTO) 13.3 % (21-51); MEAN CORPUSCULAR HEMOGLOBIN 28.4 PG (27.0-31.0); MEAN CORPUSCULAR HGB CONC 34.3 % (33.0-36.5); MEAN CORPUSCULAR VOLUME 82.8 FL (78-98); MEAN PLATELET VOLUME 8.3 FL (7.4-10.4); MONOCYTES # (AUTO) 0.5 X10'3 (0-0.9); MONOCYTES % (AUTO) 9.5 % (2-12); NEUTROPHILS # (AUTO) 3.8 X10'3 (1.8-7.7); NEUTROPHILS % (AUTO) 71.8 % (42-75); PLATELET COUNT 100 X10'3 (140-440); RED BLOOD COUNT 3.13 X10'6 (4.70-6.10); RED CELL DISTRIBUTION WIDTH 14.6 % (11.5-14.5); WHITE BLOOD COUNT 5.3 X10'3 (4.5-11.0)
[2018-05-13 07:07] LABS: ALANINE AMINOTRANSFERASE 35 U/L (12-78); ALBUMIN 2.4 G/DL (3.4-5.0); ALBUMIN/GLOBULIN RATIO 0.7 (1.1-1.5); ALKALINE PHOSPHATASE 76 IU/L (46-116); ANION GAP 13 (8-16); ASPARTATE AMINO TRANSFERASE 22 U/L (10-37); BILIRUBIN,TOTAL 0.5 MG/DL (0.1-1.0); BLOOD UREA NITROGEN 42 MG/DL (7-18); CALCIUM 8.7 MG/DL (8.5-10.1); CHLORIDE 110 MMOL/L (99-107); CREATININE 4.22 MG/DL (0.60-1.10); GLUCOSE 72 MG/DL (70-104); MAGNESIUM 1.7 MG/DL (1.5-2.4); PHOSPHORUS 4.9 MG/DL (2.3-4.5); POTASSIUM 4.9 MMOL/L (3.5-5.1); SODIUM 142 MMOL/L (135-145); TOTAL CARBON DIOXIDE 19.3 MMOL/L (24-32); TOTAL PROTEIN 5.9 G/DL (6.4-8.2); eGFR 14 ML/MIN
[2018-05-13] MEDS: pregabalin 75mg capsule PO SCH (08:34)
[2018-05-13] MEDS: pregabalin 25mg capsule PO SCH (08:34)
[2018-05-13] MEDS: tamsulosin 0.4mg capsule PO SCH (08:35)
[2018-05-13] MEDS: famotidine 20mg tablet PO SCH ×2 (08:35→21:27)
[2018-05-13] MEDS: amLODIPine 5mg tablet PO SCH (08:35)
[2018-05-13] MEDS: lactobacillus rhamnosus 10,000 MMU CELLS/CAPSULE PO SCH ×2 (08:35→21:28)
[2018-05-13] MEDS: insulin glargine (Lantus) pen - multi-dose SQ SCH ×2 (09:32→20:00)
[2018-05-13 11:00] VITALS: BP 148/59
[2018-05-13 15:00] VITALS: BP 156/62
[2018-05-13 19:00] VITALS: BP 136/66
[2018-05-13 23:00] VITALS: BP 156/56
[2018-05-14] MEDS: piperacillin/tazobactam inj. 2.25 GM in normal saline 50ml IV IV SCH ×3 (00:58→15:57)
[2018-05-14] MEDS: heparin, porcine 5000 units/ml vial SQ SCH ×3 (00:58→15:59)
[2018-05-14] MEDS: ipratropium/albuterol 3ml nebule NEB SCH ×4 (02:32→20:27)
[2018-05-14 03:00] VITALS: BP 164/56
[2018-05-14] MEDS: sodium chloride 0.45% 1,000 ML IV SCH ×2 (04:53→16:01)
[2018-05-14 06:00] VITALS: BP 175/64
[2018-05-14 06:33] LABS: BASOPHILS % (AUTO) 0.4 % (0-1); EOSINOPHILS # (AUTO) 0.2 X10'3 (0-0.9); EOSINOPHILS % (AUTO) 5.8 % (0-6); HEMOGLOBIN 7.9 g/dl (14.0-17.9); LYMPHOCYTES # (AUTO) 0.7 X10'3 (1.1-4.8); LYMPHOCYTES % (AUTO) 17.8 % (21-51); MEAN CORPUSCULAR HEMOGLOBIN 27.4 PG (27.0-31.0); MEAN CORPUSCULAR HGB CONC 32.8 % (33.0-36.5); MEAN CORPUSCULAR VOLUME 83.4 FL (78-98); MEAN PLATELET VOLUME 7.9 FL (7.4-10.4); MONOCYTES # (AUTO) 0.4 X10'3 (0-0.9); MONOCYTES % (AUTO) 10.7 % (2-12); NEUTROPHILS # (AUTO) 2.7 X10'3 (1.8-7.7); NEUTROPHILS % (AUTO) 65.3 % (42-75); PLATELET COUNT 111 X10'3 (140-440); RED BLOOD COUNT 2.88 X10'6 (4.70-6.10); RED CELL DISTRIBUTION WIDTH 15.7 % (11.5-14.5); WHITE BLOOD COUNT 4.2 X10'3 (4.5-11.0)
[2018-05-14 07:00] LABS: ALANINE AMINOTRANSFERASE 32 U/L (12-78); ALBUMIN 2.2 G/DL (3.4-5.0); ALBUMIN/GLOBULIN RATIO 0.6 (1.1-1.5); ALKALINE PHOSPHATASE 72 IU/L (46-116); ANION GAP 12 (8-16); ASPARTATE AMINO TRANSFERASE 15 U/L (10-37); BILIRUBIN,TOTAL 0.4 MG/DL (0.1-1.0); BLOOD UREA NITROGEN 39 MG/DL (7-18); BUN/CREATININE RATIO 9.4 (5.4-32.0); CALCIUM 8.4 MG/DL (8.5-10.1); CHLORIDE 110 MMOL/L (99-107); CREATININE 4.17 MG/DL (0.60-1.10); GLUCOSE 75 MG/DL (70-104); MAGNESIUM 1.7 MG/DL (1.5-2.4); PHOSPHORUS 4.7 MG/DL (2.3-4.5); POTASSIUM 4.9 MMOL/L (3.5-5.1); SODIUM 140 MMOL/L (135-145); TOTAL CARBON DIOXIDE 17.6 MMOL/L (24-32); TOTAL PROTEIN 5.7 G/DL (6.4-8.2); eGFR 14 ML/MIN
[2018-05-14] MEDS: tamsulosin 0.4mg capsule PO SCH (07:17)
[2018-05-14] MEDS: lactobacillus rhamnosus 10,000 MMU CELLS/CAPSULE PO SCH ×2 (07:17→21:13)
[2018-05-14] MEDS: pregabalin 75mg capsule PO SCH (07:17)
[2018-05-14] MEDS: amLODIPine 5mg tablet PO SCH (07:17)
[2018-05-14] MEDS: pregabalin 25mg capsule PO SCH (07:17)
[2018-05-14] MEDS: famotidine 20mg tablet PO SCH ×2 (07:17→21:13)
[2018-05-14] MEDS: insulin glargine (Lantus) pen - multi-dose SQ SCH ×2 (08:00→21:20)
[2018-05-14 11:00] VITALS: BP 113/71
[2018-05-14 15:00] VITALS: BP 168/61
[2018-05-14 19:00] VITALS: BP 164/62
[2018-05-14 23:00] VITALS: BP 134/66
[2018-05-15] MEDS: piperacillin/tazobactam inj. 2.25 GM in normal saline 50ml IV IV SCH ×2 (00:40→07:40)
[2018-05-15 00:44] LABS: BASOPHILS % (AUTO) 0.8 % (0-1); EOSINOPHILS # (AUTO) 0.3 X10'3 (0-0.9); EOSINOPHILS % (AUTO) 6.6 % (0-6); HEMATOCRIT 24.4 % (42.0-52.0); LYMPHOCYTES # (AUTO) 0.6 X10'3 (1.1-4.8); LYMPHOCYTES % (AUTO) 12.4 % (21-51); MEAN CORPUSCULAR HEMOGLOBIN 27.2 PG (27.0-31.0); MEAN CORPUSCULAR HGB CONC 32.7 % (33.0-36.5); MEAN CORPUSCULAR VOLUME 83.1 FL (78-98); MEAN PLATELET VOLUME 8.2 FL (7.4-10.4); MONOCYTES # (AUTO) 0.4 X10'3 (0-0.9); MONOCYTES % (AUTO) 8.2 % (2-12); NEUTROPHILS # (AUTO) 3.5 X10'3 (1.8-7.7); PLATELET COUNT 118 X10'3 (140-440); RED BLOOD COUNT 2.94 X10'6 (4.70-6.10); RED CELL DISTRIBUTION WIDTH 14.2 % (11.5-14.5); WHITE BLOOD COUNT 4.8 X10'3 (4.5-11.0)
[2018-05-15] MEDS: heparin, porcine 5000 units/ml vial SQ SCH ×3 (00:44→15:34)
[2018-05-15 01:12] LABS: ALANINE AMINOTRANSFERASE 27 U/L (12-78); ALBUMIN 2.3 G/DL (3.4-5.0); ALBUMIN/GLOBULIN RATIO 0.6 (1.1-1.5); ALKALINE PHOSPHATASE 76 IU/L (46-116); ANION GAP 11 (8-16); ASPARTATE AMINO TRANSFERASE 22 U/L (10-37); BILIRUBIN,TOTAL 0.4 MG/DL (0.1-1.0); BLOOD UREA NITROGEN 38 MG/DL (7-18); BUN/CREATININE RATIO 9.5 (5.4-32.0); CALCIUM 8.6 MG/DL (8.5-10.1); CHLORIDE 109 MMOL/L (99-107); CREATININE 3.98 MG/DL (0.60-1.10); GLUCOSE 82 MG/DL (70-104); MAGNESIUM 1.6 MG/DL (1.5-2.4); PHOSPHORUS 4.3 MG/DL (2.3-4.5); POTASSIUM 4.7 MMOL/L (3.5-5.1); PREALBUMIN 17.1 MG/DL (19-36); SODIUM 138 MMOL/L (135-145); TOTAL CARBON DIOXIDE 18.2 MMOL/L (24-32); TOTAL PROTEIN 5.9 G/DL (6.4-8.2); eGFR 15 ML/MIN
[2018-05-15] MEDS: ipratropium/albuterol 3ml nebule NEB SCH ×4 (02:27→20:12)
[2018-05-15 03:00] VITALS: BP 165/70
[2018-05-15] MEDS: sodium chloride 0.45% 1,000 ML IV SCH ×2 (03:20→09:06)
[2018-05-15 06:00] VITALS: BP 147/63
[2018-05-15] MEDS: pregabalin 25mg capsule PO SCH (07:41)
[2018-05-15] MEDS: lactobacillus rhamnosus 10,000 MMU CELLS/CAPSULE PO SCH ×2 (07:41→20:00)
[2018-05-15] MEDS: pregabalin 75mg capsule PO SCH (07:41)
[2018-05-15] MEDS: famotidine 20mg tablet PO SCH ×2 (07:41→20:00)
[2018-05-15] MEDS: amLODIPine 5mg tablet PO SCH (07:41)
[2018-05-15] MEDS: tamsulosin 0.4mg capsule PO SCH (07:41)
[2018-05-15] MEDS: insulin glargine (Lantus) pen - multi-dose SQ SCH ×2 (08:00→20:00)
[2018-05-15 11:00] VITALS: BP 150/63
[2018-05-15 15:00] VITALS: BP 153/66
[2018-05-15 19:00] VITALS: BP 153/73
[2018-05-15 23:00] VITALS: BP 147/67
[2018-05-16] MEDS: heparin, porcine 5000 units/ml vial SQ SCH ×3 (00:44→16:07)
[2018-05-16] MEDS: ipratropium/albuterol 3ml nebule NEB SCH ×4 (02:53→20:53)
[2018-05-16 03:00] VITALS: BP 128/68
[2018-05-16 05:33] LABS: BASOPHILS % (AUTO) 0.7 % (0-1); EOSINOPHILS # (AUTO) 0.2 X10'3 (0-0.9); EOSINOPHILS % (AUTO) 6.3 % (0-6); HEMATOCRIT 23.7 % (42.0-52.0); HEMOGLOBIN 7.9 g/dl (14.0-17.9); LYMPHOCYTES # (AUTO) 0.6 X10'3 (1.1-4.8); MEAN CORPUSCULAR HEMOGLOBIN 27.6 PG (27.0-31.0); MEAN CORPUSCULAR HGB CONC 33.5 % (33.0-36.5); MEAN CORPUSCULAR VOLUME 82.3 FL (78-98); MEAN PLATELET VOLUME 7.9 FL (7.4-10.4); MONOCYTES # (AUTO) 0.4 X10'3 (0-0.9); MONOCYTES % (AUTO) 11.6 % (2-12); NEUTROPHILS # (AUTO) 2.3 X10'3 (1.8-7.7); NEUTROPHILS % (AUTO) 65.4 % (42-75); PLATELET COUNT 124 X10'3 (140-440); RED BLOOD COUNT 2.88 X10'6 (4.70-6.10); RED CELL DISTRIBUTION WIDTH 15.3 % (11.5-14.5); WHITE BLOOD COUNT 3.6 X10'3 (4.5-11.0)
[2018-05-16 05:53] LABS: ALANINE AMINOTRANSFERASE 33 U/L (12-78); ALBUMIN 2.2 G/DL (3.4-5.0); ALBUMIN/GLOBULIN RATIO 0.6 (1.1-1.5); ALKALINE PHOSPHATASE 78 IU/L (46-116); ANION GAP 10 (8-16); ASPARTATE AMINO TRANSFERASE 20 U/L (10-37); BILIRUBIN,TOTAL 0.4 MG/DL (0.1-1.0); BLOOD UREA NITROGEN 39 MG/DL (7-18); BUN/CREATININE RATIO 9.4 (5.4-32.0); CALCIUM 8.1 MG/DL (8.5-10.1); CHLORIDE 110 MMOL/L (99-107); CREATININE 4.17 MG/DL (0.60-1.10); GLUCOSE 83 MG/DL (70-104); MAGNESIUM 1.6 MG/DL (1.5-2.4); POTASSIUM 4.7 MMOL/L (3.5-5.1); SODIUM 140 MMOL/L (135-145); TOTAL CARBON DIOXIDE 20.1 MMOL/L (24-32); TOTAL PROTEIN 5.7 G/DL (6.4-8.2); eGFR 14 ML/MIN
[2018-05-16 06:00] VITALS: BP 152/55
[2018-05-16] MEDS: amLODIPine 5mg tablet PO SCH (07:41)
[2018-05-16] MEDS: lactobacillus rhamnosus 10,000 MMU CELLS/CAPSULE PO SCH ×2 (07:41→19:59)
[2018-05-16] MEDS: pregabalin 75mg capsule PO SCH (07:41)
[2018-05-16] MEDS: pregabalin 25mg capsule PO SCH (07:41)
[2018-05-16] MEDS: famotidine 20mg tablet PO SCH ×2 (07:41→19:59)
[2018-05-16] MEDS: tamsulosin 0.4mg capsule PO SCH (07:41)
[2018-05-16] MEDS: insulin glargine (Lantus) pen - multi-dose SQ SCH ×2 (07:49→20:00)
[2018-05-16 11:00] VITALS: BP 149/48
[2018-05-16 15:00] VITALS: BP 160/60
[2018-05-16] MEDS ORDERED: epoetin 20,000 units/ml inj SQ ONE (16:35)
[2018-05-16 19:00] VITALS: BP 165/106
[2018-05-16] MEDS: normal saline 1000ml 1,000 ML IV SCH (19:59)
[2018-05-16 20:09] LABS: FERRITIN 103 NG/ML (26-388)
[2018-05-16 20:14] LABS: % IRON SATURATION 16 % (11-46); IRON 38 UG/DL (53-167); TOTAL IRON BINDING CAPACITY 241 UG/DL (259-388)
[2018-05-16 23:00] VITALS: BP 167/66
[2018-05-17] MEDS: heparin, porcine 5000 units/ml vial SQ SCH ×3 (00:31→16:14)
[2018-05-17] MEDS: ipratropium/albuterol 3ml nebule NEB SCH ×4 (02:46→21:25)
[2018-05-17 03:00] VITALS: BP 125/35
[2018-05-17 05:28] LABS: BASOPHILS % (AUTO) 0.6 % (0-1); EOSINOPHILS # (AUTO) 0.2 X10'3 (0-0.9); EOSINOPHILS % (AUTO) 6.3 % (0-6); HEMOGLOBIN 7.7 g/dl (14.0-17.9); LYMPHOCYTES # (AUTO) 0.6 X10'3 (1.1-4.8); LYMPHOCYTES % (AUTO) 17.3 % (21-51); MEAN CORPUSCULAR HEMOGLOBIN 27.4 PG (27.0-31.0); MEAN CORPUSCULAR HGB CONC 33.3 % (33.0-36.5); MEAN CORPUSCULAR VOLUME 82.4 FL (78-98); MEAN PLATELET VOLUME 7.5 FL (7.4-10.4); MONOCYTES # (AUTO) 0.4 X10'3 (0-0.9); MONOCYTES % (AUTO) 11.3 % (2-12); NEUTROPHILS # (AUTO) 2.1 X10'3 (1.8-7.7); NEUTROPHILS % (AUTO) 64.5 % (42-75); PLATELET COUNT 119 X10'3 (140-440); RED BLOOD COUNT 2.79 X10'6 (4.70-6.10); RED CELL DISTRIBUTION WIDTH 15.7 % (11.5-14.5); WHITE BLOOD COUNT 3.3 X10'3 (4.5-11.0)
[2018-05-17 06:06] LABS: ALANINE AMINOTRANSFERASE 27 U/L (12-78); ALBUMIN 2.3 G/DL (3.4-5.0); ALBUMIN/GLOBULIN RATIO 0.7 (1.1-1.5); ALKALINE PHOSPHATASE 72 IU/L (46-116); ANION GAP 11 (8-16); ASPARTATE AMINO TRANSFERASE 15 U/L (10-37); BILIRUBIN,TOTAL 0.4 MG/DL (0.1-1.0); BLOOD UREA NITROGEN 40 MG/DL (7-18); BUN/CREATININE RATIO 10.3 (5.4-32.0); CALCIUM 8.2 MG/DL (8.5-10.1); CHLORIDE 113 MMOL/L (99-107); CREATININE 3.88 MG/DL (0.60-1.10); GLUCOSE 99 MG/DL (70-104); MAGNESIUM 1.7 MG/DL (1.5-2.4); PHOSPHORUS 5.3 MG/DL (2.3-4.5); POTASSIUM 4.8 MMOL/L (3.5-5.1); SODIUM 144 MMOL/L (135-145); TOTAL CARBON DIOXIDE 19.8 MMOL/L (24-32); TOTAL PROTEIN 5.7 G/DL (6.4-8.2); eGFR 15 ML/MIN
[2018-05-17 07:00] VITALS: BP 120/34
[2018-05-17] MEDS: amLODIPine 5mg tablet PO SCH (08:00)
[2018-05-17] MEDS: pregabalin 75mg capsule PO SCH (08:00)
[2018-05-17] MEDS: famotidine 20mg tablet PO SCH ×2 (08:00→20:11)
[2018-05-17] MEDS: lactobacillus rhamnosus 10,000 MMU CELLS/CAPSULE PO SCH ×2 (08:00→20:11)
[2018-05-17] MEDS: pregabalin 25mg capsule PO SCH (08:00)
[2018-05-17] MEDS: insulin glargine (Lantus) pen - multi-dose SQ SCH ×2 (08:00→20:00)
[2018-05-17] MEDS: tamsulosin 0.4mg capsule PO SCH (08:00)
[2018-05-17] MEDS: normal saline 1000ml 1,000 ML IV SCH ×2 (09:41→22:25)
[2018-05-17 11:00] VITALS: BP 141/46
[2018-05-17 15:00] VITALS: BP 120/44
[2018-05-17] MEDS ORDERED: iron sucrose complex injection 200 MG in normal saline 100ml IV soln 100 ML IV SCH (17:20)
[2018-05-17 19:00] VITALS: BP 117/45
[2018-05-17] MEDS: sodium ferric gluc complex inj 125 MG in normal saline 100ml IV soln 100 ML IV SCH (21:08)
[2018-05-17 23:00] VITALS: BP 151/65
[2018-05-18] MEDS: heparin, porcine 5000 units/ml vial SQ SCH ×3 (00:54→16:58)
[2018-05-18] MEDS: normal saline 1000ml 1,000 ML IV SCH (01:00)
[2018-05-18 03:00] VITALS: BP 149/65
[2018-05-18] MEDS: ipratropium/albuterol 3ml nebule NEB SCH ×4 (03:02→20:56)
[2018-05-18 06:15] LABS: BASOPHILS % (AUTO) 0.6 % (0-1); EOSINOPHILS # (AUTO) 0.2 X10'3 (0-0.9); EOSINOPHILS % (AUTO) 5.6 % (0-6); HEMATOCRIT 22.7 % (42.0-52.0); HEMOGLOBIN 7.6 g/dl (14.0-17.9); LYMPHOCYTES # (AUTO) 0.5 X10'3 (1.1-4.8); LYMPHOCYTES % (AUTO) 15.1 % (21-51); MEAN CORPUSCULAR HEMOGLOBIN 27.5 PG (27.0-31.0); MEAN CORPUSCULAR HGB CONC 33.4 % (33.0-36.5); MEAN CORPUSCULAR VOLUME 82.3 FL (78-98); MEAN PLATELET VOLUME 7.6 FL (7.4-10.4); MONOCYTES # (AUTO) 0.4 X10'3 (0-0.9); MONOCYTES % (AUTO) 11.6 % (2-12); NEUTROPHILS # (AUTO) 2.1 X10'3 (1.8-7.7); NEUTROPHILS % (AUTO) 67.1 % (42-75); PLATELET COUNT 117 X10'3 (140-440); RED BLOOD COUNT 2.76 X10'6 (4.70-6.10); RED CELL DISTRIBUTION WIDTH 15.6 % (11.5-14.5); WHITE BLOOD COUNT 3.1 X10'3 (4.5-11.0)
[2018-05-18 06:27] LABS: ALANINE AMINOTRANSFERASE 26 U/L (12-78); ALBUMIN 2.2 G/DL (3.4-5.0); ALBUMIN/GLOBULIN RATIO 0.7 (1.1-1.5); ALKALINE PHOSPHATASE 71 IU/L (46-116); ANION GAP 13 (8-16); ASPARTATE AMINO TRANSFERASE 14 U/L (10-37); BILIRUBIN,TOTAL 0.4 MG/DL (0.1-1.0); BLOOD UREA NITROGEN 38 MG/DL (7-18); BUN/CREATININE RATIO 10.6 (5.4-32.0); CALCIUM 8.2 MG/DL (8.5-10.1); CHLORIDE 114 MMOL/L (99-107); GLUCOSE 91 MG/DL (70-104); MAGNESIUM 1.5 MG/DL (1.5-2.4); PHOSPHORUS 4.8 MG/DL (2.3-4.5); POTASSIUM 4.8 MMOL/L (3.5-5.1); PREALBUMIN 17.5 MG/DL (19-36); SODIUM 145 MMOL/L (135-145); TOTAL CARBON DIOXIDE 18.1 MMOL/L (24-32); TOTAL PROTEIN 5.5 G/DL (6.4-8.2); eGFR 16 ML/MIN
[2018-05-18 07:00] VITALS: BP 155/67
[2018-05-18] MEDS: pregabalin 25mg capsule PO SCH (08:13)
[2018-05-18] MEDS: tamsulosin 0.4mg capsule PO SCH (08:13)
[2018-05-18] MEDS: pregabalin 75mg capsule PO SCH (08:14)
[2018-05-18] MEDS: amLODIPine 5mg tablet PO SCH (08:15)
[2018-05-18] MEDS: sodium ferric gluc complex inj 125 MG in normal saline 100ml IV soln 100 ML IV SCH (08:15)
[2018-05-18] MEDS: lactobacillus rhamnosus 10,000 MMU CELLS/CAPSULE PO SCH ×2 (08:15→19:26)
[2018-05-18] MEDS: famotidine 20mg tablet PO SCH ×2 (08:15→19:26)
[2018-05-18 11:00] VITALS: BP 152/62
[2018-05-18 15:00] VITALS: BP 174/72
[2018-05-18 19:00] VITALS: BP 137/108
[2018-05-18] MEDS: furosemide 40mg/4ml inj IV SCH (19:27)
[2018-05-18 23:00] VITALS: BP 106/70
[2018-05-19] MEDS: ipratropium/albuterol 3ml nebule NEB SCH ×4 (02:42→21:24)
[2018-05-19 03:00] VITALS: BP 151/62
[2018-05-19 06:47] VITALS: BP 152/57
[2018-05-19] MEDS: heparin, porcine 5000 units/ml vial SQ SCH ×3 (07:16→16:00)
[2018-05-19] MEDS: lactobacillus rhamnosus 10,000 MMU CELLS/CAPSULE PO SCH ×2 (07:16→20:42)
[2018-05-19] MEDS: pregabalin 25mg capsule PO SCH (07:16)
[2018-05-19] MEDS: pregabalin 75mg capsule PO SCH (07:16)
[2018-05-19] MEDS: tamsulosin 0.4mg capsule PO SCH (07:16)
[2018-05-19] MEDS: amLODIPine 5mg tablet PO SCH (07:17)
[2018-05-19] MEDS: furosemide 40mg/4ml inj IV SCH ×2 (07:17→20:42)
[2018-05-19] MEDS: famotidine 20mg tablet PO SCH ×2 (07:17→20:42)
[2018-05-19] MEDS: sodium ferric gluc complex inj 125 MG in normal saline 100ml IV soln 100 ML IV SCH (07:25)
[2018-05-19 07:27] LABS: BASOPHILS % (AUTO) 0.7 % (0-1); EOSINOPHILS # (AUTO) 0.2 X10'3 (0-0.9); EOSINOPHILS % (AUTO) 5.5 % (0-6); HEMATOCRIT 23.2 % (42.0-52.0); HEMOGLOBIN 7.8 g/dl (14.0-17.9); LYMPHOCYTES # (AUTO) 0.5 X10'3 (1.1-4.8); LYMPHOCYTES % (AUTO) 14.8 % (21-51); MEAN CORPUSCULAR HEMOGLOBIN 27.4 PG (27.0-31.0); MEAN CORPUSCULAR HGB CONC 33.5 % (33.0-36.5); MEAN CORPUSCULAR VOLUME 81.7 FL (78-98); MEAN PLATELET VOLUME 7.3 FL (7.4-10.4); MONOCYTES # (AUTO) 0.3 X10'3 (0-0.9); MONOCYTES % (AUTO) 10.1 % (2-12); NEUTROPHILS # (AUTO) 2.2 X10'3 (1.8-7.7); NEUTROPHILS % (AUTO) 68.9 % (42-75); PLATELET COUNT 118 X10'3 (140-440); RED BLOOD COUNT 2.84 X10'6 (4.70-6.10); RED CELL DISTRIBUTION WIDTH 15.7 % (11.5-14.5); WHITE BLOOD COUNT 3.2 X10'3 (4.5-11.0)
[2018-05-19 07:53] LABS: ALANINE AMINOTRANSFERASE 22 U/L (12-78); ALBUMIN 2.2 G/DL (3.4-5.0); ALBUMIN/GLOBULIN RATIO 0.7 (1.1-1.5); ALKALINE PHOSPHATASE 68 IU/L (46-116); ANION GAP 13 (8-16); ASPARTATE AMINO TRANSFERASE 14 U/L (10-37); BILIRUBIN,TOTAL 0.5 MG/DL (0.1-1.0); BLOOD UREA NITROGEN 35 MG/DL (7-18); BUN/CREATININE RATIO 9.9 (5.4-32.0); CALCIUM 8.3 MG/DL (8.5-10.1); CREATININE 3.52 MG/DL (0.60-1.10); GLUCOSE 84 MG/DL (70-104); MAGNESIUM 1.6 MG/DL (1.5-2.4); PHOSPHORUS 4.6 MG/DL (2.3-4.5); SODIUM 143 MMOL/L (135-145); TOTAL CARBON DIOXIDE 18.3 MMOL/L (24-32); TOTAL PROTEIN 5.4 G/DL (6.4-8.2); eGFR 17 ML/MIN
[2018-05-19 08:00] LABS: CHLORIDE 112 MMOL/L (99-107)
[2018-05-19 11:00] VITALS: BP 140/50
[2018-05-19 15:00] VITALS: BP 138/51
[2018-05-19 18:00] VITALS: BP 166/69
[2018-05-19 22:00] VITALS: BP 169/64
[2018-05-20] VITALS (12 sets, daily range): BP systolic 100–170; BP diastolic 41–79
[2018-05-20] MEDS: heparin, porcine 5000 units/ml vial SQ SCH ×3 (00:17→16:00)
[2018-05-20] MEDS: ipratropium/albuterol 3ml nebule NEB SCH ×4 (03:14→21:45)
[2018-05-20 07:24] LABS: BASOPHILS % (AUTO) 0.7 % (0-1); EOSINOPHILS # (AUTO) 0.1 X10'3 (0-0.9); EOSINOPHILS % (AUTO) 3.1 % (0-6); HEMATOCRIT 26.4 % (42.0-52.0); HEMOGLOBIN 8.7 g/dl (14.0-17.9); LYMPHOCYTES # (AUTO) 0.5 X10'3 (1.1-4.8); LYMPHOCYTES % (AUTO) 11.2 % (21-51); MEAN CORPUSCULAR HEMOGLOBIN 27.2 PG (27.0-31.0); MEAN CORPUSCULAR HGB CONC 32.8 % (33.0-36.5); MEAN CORPUSCULAR VOLUME 82.8 FL (78-98); MEAN PLATELET VOLUME 7.8 FL (7.4-10.4); MONOCYTES # (AUTO) 0.4 X10'3 (0-0.9); NEUTROPHILS # (AUTO) 3.3 X10'3 (1.8-7.7); PLATELET COUNT 133 X10'3 (140-440); RED BLOOD COUNT 3.19 X10'6 (4.70-6.10); WHITE BLOOD COUNT 4.3 X10'3 (4.5-11.0)
[2018-05-20 07:47] LABS: ALANINE AMINOTRANSFERASE 22 U/L (12-78); ALBUMIN 2.7 G/DL (3.4-5.0); ALBUMIN/GLOBULIN RATIO 0.8 (1.1-1.5); ALKALINE PHOSPHATASE 82 IU/L (46-116); ANION GAP 15 (8-16); ASPARTATE AMINO TRANSFERASE 16 U/L (10-37); BILIRUBIN,TOTAL 0.5 MG/DL (0.1-1.0); BLOOD UREA NITROGEN 37 MG/DL (7-18); BUN/CREATININE RATIO 9.5 (5.4-32.0); CALCIUM 8.6 MG/DL (8.5-10.1); CHLORIDE 109 MMOL/L (99-107); CREATININE 3.88 MG/DL (0.60-1.10); GLUCOSE 103 MG/DL (70-104); MAGNESIUM 1.6 MG/DL (1.5-2.4); PHOSPHORUS 4.7 MG/DL (2.3-4.5); POTASSIUM 4.8 MMOL/L (3.5-5.1); SODIUM 143 MMOL/L (135-145); TOTAL CARBON DIOXIDE 19.3 MMOL/L (24-32); TOTAL PROTEIN 6.2 G/DL (6.4-8.2); eGFR 15 ML/MIN
[2018-05-20] MEDS: tamsulosin 0.4mg capsule PO SCH (08:15)
[2018-05-20] MEDS: pregabalin 25mg capsule PO SCH (08:15)
[2018-05-20] MEDS: pregabalin 75mg capsule PO SCH (08:15)
[2018-05-20] MEDS: famotidine 20mg tablet PO SCH ×2 (08:16→20:01)
[2018-05-20] MEDS: amLODIPine 5mg tablet PO SCH (08:16)
[2018-05-20] MEDS: lactobacillus rhamnosus 10,000 MMU CELLS/CAPSULE PO SCH ×2 (08:16→20:01)
[2018-05-20] MEDS: furosemide 40mg/4ml inj IV SCH (08:19)
[2018-05-20] MEDS: sodium ferric gluc complex inj 125 MG in normal saline 100ml IV soln 100 ML IV SCH (09:00)
[2018-05-20] MEDS ORDERED: diltiazem-NS 100mg/100ml 100 ML IV SCH (13:50)
[2018-05-20] MEDS ORDERED: amiodarone 150mg/dext, iso-os 100 ML IV ONE ×2 (13:50→14:23)
[2018-05-20] MEDS ORDERED: normal saline 1000ml 1,000 ML IV ONE (13:50)
[2018-05-20] MEDS: piperacillin-tazo 2.25gm/50ml 50 ML IV SCH ×2 (14:00→20:09)
[2018-05-20] MEDS ORDERED: LORazepam 2 mg/ml vial ONE (14:01)
[2018-05-20] MEDS ORDERED: LORazepam 2 mg/ml vial IV ONE (14:05)
[2018-05-20] MEDS ORDERED: LORazepam 2 mg/ml vial IM ONE (14:10)
[2018-05-20] MEDS ORDERED: acetaminophen 650mg rectal suppository RC ONE (14:20)
[2018-05-20] MEDS ORDERED: amiodarone/D5 360MG/200ML BAG 200 ML IV ONE (14:42)
[2018-05-20 14:45] LABS: ABG OXYGEN SATURATION 98.1 % (95-98); ABG PCO2 (T) 21.9 mmHg (35.0-48.0); ABG PH (T) 7.331 (7.350-7.450); ABG PO2 (T) 155.2 mmHg (83-108); ALLEN'S TEST Positive; FCOHb 0.2 % (0.5-1.5); FLOW 6 L/min; FMetHb 0.6 % (0.3-1.12); FO2Hb 97.3 % (94-100); PATIENT TEMPERATURE 39.4; TOTAL HEMOGLOBIN 6.8 G/dl (14.0-18.0)
[2018-05-20] MEDS ORDERED: amiodarone/D5 360MG/200ML BAG 200 ML IV SCH (14:45)
[2018-05-20 14:54] LABS: BASOPHILS % (AUTO) 0.3 % (0-1); EOSINOPHILS % (AUTO) 1.2 % (0-6); HEMATOCRIT 25.9 % (42.0-52.0); HEMOGLOBIN 8.6 g/dl (14.0-17.9); LYMPHOCYTES # (AUTO) 0.1 X10'3 (1.1-4.8); LYMPHOCYTES % (AUTO) 5.2 % (21-51); MEAN CORPUSCULAR HEMOGLOBIN 27.4 PG (27.0-31.0); MEAN CORPUSCULAR HGB CONC 33.3 % (33.0-36.5); MEAN CORPUSCULAR VOLUME 82.1 FL (78-98); MEAN PLATELET VOLUME 7.2 FL (7.4-10.4); MONOCYTES # (AUTO) 0.1 X10'3 (0-0.9); MONOCYTES % (AUTO) 3.7 % (2-12); NEUTROPHILS # (AUTO) 2.5 X10'3 (1.8-7.7); NEUTROPHILS % (AUTO) 89.6 % (42-75); PLATELET COUNT 101 X10'3 (140-440); RED BLOOD COUNT 3.15 X10'6 (4.70-6.10); RED CELL DISTRIBUTION WIDTH 15.8 % (11.5-14.5); WHITE BLOOD COUNT 2.8 X10'3 (4.5-11.0)
[2018-05-20 15:08] LABS: ALANINE AMINOTRANSFERASE 20 U/L (12-78); ALBUMIN 2.3 G/DL (3.4-5.0); ALBUMIN/GLOBULIN RATIO 0.7 (1.1-1.5); ALKALINE PHOSPHATASE 78 IU/L (46-116); ANION GAP 15 (8-16); ASPARTATE AMINO TRANSFERASE 12 U/L (10-37); BILIRUBIN,TOTAL 0.6 MG/DL (0.1-1.0); BLOOD UREA NITROGEN 36 MG/DL (7-18); BUN/CREATININE RATIO 10.1 (5.4-32.0); CALCIUM 7.2 MG/DL (8.5-10.1); CHLORIDE 109 MMOL/L (99-107); CREATININE 3.56 MG/DL (0.60-1.10); GLUCOSE 180 MG/DL (70-104); POTASSIUM 4.5 MMOL/L (3.5-5.1); SODIUM 139 MMOL/L (135-145); TOTAL PROTEIN 5.4 G/DL (6.4-8.2); eGFR 17 ML/MIN
[2018-05-20 15:15] LABS: ANISOCYTOSIS 1+; PLATELET ESTIMATE DECREASED; POIKILOCYTOSIS 1+; POLYCHROMASIA 1+; TOTAL CELLS COUNTED 100
[2018-05-20] MEDS ORDERED: LORazepam 2 mg/ml vial IV PRN (15:25)
[2018-05-20] MEDS: diltiazem-NS 100mg/100ml 100 ML IV SCH ×2 (15:45→20:13)
[2018-05-20] MEDS ORDERED: CefTRIAXone 2gm/D5W 50ml 50 ML IV ONE (15:50)
[2018-05-20] MEDS ORDERED: WATER FOR INJECTION IV ONE (16:05)
[2018-05-20] MEDS ORDERED: STERILE IV ONE (16:05)
[2018-05-20] MEDS ORDERED: DANTROLENE IV ONE (16:05)
[2018-05-20] MEDS: levetiracetam inj 500 MG in normal saline 100ml IV soln 95 ML IV SCH (16:21)
[2018-05-21] VITALS (20 sets, daily range): BP systolic 97–142; BP diastolic 43–73
[2018-05-21] MEDS: piperacillin-tazo 2.25gm/50ml 50 ML IV SCH ×2 (02:04→08:11)
[2018-05-21] MEDS: heparin, porcine 5000 units/ml vial SQ SCH ×4 (02:05→23:45)
[2018-05-21] MEDS: normal saline 1000ml 1,000 ML IV SCH ×4 (02:09→19:12)
[2018-05-21 03:04] LABS: HEMATOCRIT 25.6 % (42.0-52.0); HEMOGLOBIN 8.4 g/dl (14.0-17.9); MEAN CORPUSCULAR HGB CONC 32.6 % (33.0-36.5); MEAN CORPUSCULAR VOLUME 82.8 FL (78-98); MEAN PLATELET VOLUME 7.6 FL (7.4-10.4); PLATELET COUNT 118 X10'3 (140-440); RED BLOOD COUNT 3.09 X10'6 (4.70-6.10); RED CELL DISTRIBUTION WIDTH 16.3 % (11.5-14.5); WHITE BLOOD COUNT 8.2 X10'3 (4.5-11.0)
[2018-05-21 03:09] LABS: ALANINE AMINOTRANSFERASE 16 U/L (12-78); ALBUMIN 2.1 G/DL (3.4-5.0); ALBUMIN/GLOBULIN RATIO 0.7 (1.1-1.5); ALKALINE PHOSPHATASE 72 IU/L (46-116); ANION GAP 11 (8-16); ASPARTATE AMINO TRANSFERASE 20 U/L (10-37); BILIRUBIN,TOTAL 0.6 MG/DL (0.1-1.0); BLOOD UREA NITROGEN 40 MG/DL (7-18); BUN/CREATININE RATIO 9.2 (5.4-32.0); CALCIUM 7.5 MG/DL (8.5-10.1); CHLORIDE 108 MMOL/L (99-107); CREATININE 4.36 MG/DL (0.60-1.10); GLUCOSE 133 MG/DL (70-104); MAGNESIUM 1.3 MG/DL (1.5-2.4); PHOSPHORUS 4.7 MG/DL (2.3-4.5); POTASSIUM 5.9 MMOL/L (3.5-5.1); SODIUM 138 MMOL/L (135-145); TOTAL CARBON DIOXIDE 18.7 MMOL/L (24-32); TOTAL PROTEIN 5.2 G/DL (6.4-8.2); eGFR 13 ML/MIN
[2018-05-21 03:10] LABS: INR 1.1 INR; PARTIAL THROMBOPLASTIN TIME 43 SECONDS (22-32); PROTHROMBIN TIME 11.6 SECONDS (9.0-12.0)
[2018-05-21] MEDS: ipratropium/albuterol 3ml nebule NEB SCH ×4 (03:30→20:56)
[2018-05-21 05:25] LABS: ANISOCYTOSIS 1+; PLATELET ESTIMATE DECREASED; TOTAL CELLS COUNTED 100
[2018-05-21] MEDS ORDERED: sodium polystyrene sulfonate 15gm/60ml oral suspension PO ONE (06:40)
[2018-05-21] MEDS: levetiracetam inj 500 MG in normal saline 100ml IV soln 95 ML IV SCH ×2 (08:02→19:55)
[2018-05-21] MEDS: tamsulosin 0.4mg capsule PO SCH (08:10)
[2018-05-21] MEDS: pregabalin 25mg capsule PO SCH (08:10)
[2018-05-21] MEDS: amLODIPine 5mg tablet PO SCH (08:10)
[2018-05-21] MEDS: lactobacillus rhamnosus 10,000 MMU CELLS/CAPSULE PO SCH ×2 (08:10→19:56)
[2018-05-21] MEDS: pregabalin 75mg capsule PO SCH (08:10)
[2018-05-21] MEDS: famotidine 20mg tablet PO SCH ×2 (08:11→19:55)
[2018-05-21] MEDS ORDERED: epoetin 20,000 units/ml inj SQ ONE (08:45)
[2018-05-21 11:05] LABS: ALANINE AMINOTRANSFERASE 17 U/L (12-78); ALBUMIN/GLOBULIN RATIO 0.6 (1.1-1.5); ALKALINE PHOSPHATASE 67 IU/L (46-116); ANION GAP 12 (8-16); ASPARTATE AMINO TRANSFERASE 19 U/L (10-37); BILIRUBIN,TOTAL 0.5 MG/DL (0.1-1.0); BLOOD UREA NITROGEN 41 MG/DL (7-18); BUN/CREATININE RATIO 9.4 (5.4-32.0); CALCIUM 7.3 MG/DL (8.5-10.1); CHLORIDE 109 MMOL/L (99-107); CREATININE 4.37 MG/DL (0.60-1.10); GLUCOSE 109 MG/DL (70-104); POTASSIUM 4.8 MMOL/L (3.5-5.1); SODIUM 139 MMOL/L (135-145); TOTAL CARBON DIOXIDE 18.2 MMOL/L (24-32); TOTAL PROTEIN 5.1 G/DL (6.4-8.2); eGFR 13 ML/MIN
[2018-05-21] MEDS ORDERED: furosemide 40mg/4ml inj IV ONE (11:10)
[2018-05-21] MEDS ORDERED: levoFLOXACIN-Levaquin 500mg/D5 100 ML IV ONE (13:30)
[2018-05-21] MEDS ORDERED: insulin regular, human vial - multi-dose SQ SCH (14:25)
[2018-05-22] VITALS (24 sets, daily range): BP systolic 97–225; BP diastolic 52–102
[2018-05-22 03:03] LABS: ALANINE AMINOTRANSFERASE 17 U/L (12-78); ALBUMIN 1.8 G/DL (3.4-5.0); ALBUMIN/GLOBULIN RATIO 0.6 (1.1-1.5); ALKALINE PHOSPHATASE 68 IU/L (46-116); ANION GAP 16 (8-16); ASPARTATE AMINO TRANSFERASE 19 U/L (10-37); BILIRUBIN,TOTAL 0.4 MG/DL (0.1-1.0); BLOOD UREA NITROGEN 41 MG/DL (7-18); BUN/CREATININE RATIO 9.5 (5.4-32.0); CALCIUM 7.4 MG/DL (8.5-10.1); CHLORIDE 112 MMOL/L (99-107); CREATININE 4.32 MG/DL (0.60-1.10); GLUCOSE 108 MG/DL (70-104); MAGNESIUM 1.2 MG/DL (1.5-2.4); PHOSPHORUS 4.4 MG/DL (2.3-4.5); POTASSIUM 4.1 MMOL/L (3.5-5.1); PREALBUMIN 12.6 MG/DL (19-36); SODIUM 145 MMOL/L (135-145); TOTAL CARBON DIOXIDE 17.2 MMOL/L (24-32); TOTAL PROTEIN 4.9 G/DL (6.4-8.2); eGFR 13 ML/MIN
[2018-05-22 03:06] LABS: INR 1.2 INR; PARTIAL THROMBOPLASTIN TIME 45 SECONDS (22-32)
[2018-05-22 03:14] LABS: BASOPHILS % (AUTO) 0.3 % (0-1); EOSINOPHILS # (AUTO) 0.1 X10'3 (0-0.9); HEMATOCRIT 22.5 % (42.0-52.0); HEMOGLOBIN 7.4 g/dl (14.0-17.9); LYMPHOCYTES # (AUTO) 0.4 X10'3 (1.1-4.8); LYMPHOCYTES % (AUTO) 7.7 % (21-51); MEAN CORPUSCULAR HEMOGLOBIN 27.4 PG (27.0-31.0); MEAN CORPUSCULAR HGB CONC 33.1 % (33.0-36.5); MEAN CORPUSCULAR VOLUME 82.8 FL (78-98); MEAN PLATELET VOLUME 8.3 FL (7.4-10.4); MONOCYTES # (AUTO) 0.4 X10'3 (0-0.9); MONOCYTES % (AUTO) 8.3 % (2-12); NEUTROPHILS % (AUTO) 81.7 % (42-75); PLATELET COUNT 102 X10'3 (140-440); RED BLOOD COUNT 2.72 X10'6 (4.70-6.10); RED CELL DISTRIBUTION WIDTH 16.8 % (11.5-14.5); WHITE BLOOD COUNT 4.9 X10'3 (4.5-11.0)
[2018-05-22] MEDS: ipratropium/albuterol 3ml nebule NEB SCH ×4 (03:18→21:00)
[2018-05-22] MEDS: normal saline 1000ml 1,000 ML IV SCH ×3 (03:44→16:40)
[2018-05-22] MEDS: pregabalin 25mg capsule PO SCH (07:47)
[2018-05-22] MEDS: pregabalin 75mg capsule PO SCH (07:48)
[2018-05-22] MEDS: lactobacillus rhamnosus 10,000 MMU CELLS/CAPSULE PO SCH ×2 (07:48→20:08)
[2018-05-22] MEDS: tamsulosin 0.4mg capsule PO SCH (07:48)
[2018-05-22] MEDS: famotidine 20mg tablet PO SCH ×2 (07:48→20:08)
[2018-05-22] MEDS: amLODIPine 5mg tablet PO SCH (07:48)
[2018-05-22] MEDS: heparin, porcine 5000 units/ml vial SQ SCH ×2 (07:50→20:08)
[2018-05-22] MEDS: levetiracetam inj 500 MG in normal saline 100ml IV soln 95 ML IV SCH (07:51)
[2018-05-22] MEDS: cefepime 2g/NS 100ml ADVANTAGE 100 ML IV SCH (12:35)
[2018-05-22] MEDS: epoetin 20,000 units/ml inj SQ SCH (12:35)
[2018-05-22] MEDS: acetaminophen 650mg rectal suppository RC PRN (16:49)
[2018-05-22] MEDS: levetiracetam 250mg tablet PO SCH (20:08)
[2018-05-23] VITALS (23 sets, daily range): BP systolic 87–140; BP diastolic 45–76
[2018-05-23] MEDS: normal saline 1000ml 1,000 ML IV SCH ×3 (00:57→22:40)
[2018-05-23 03:26] LABS: BASOPHILS % (AUTO) 0 % (0-1); EOSINOPHILS % (AUTO) 0 % (0-6); HEMATOCRIT 24.2 % (42.0-52.0); LYMPHOCYTES # (AUTO) 0.4 X10'3 (1.1-4.8); MEAN CORPUSCULAR HEMOGLOBIN 27.4 PG (27.0-31.0); MEAN CORPUSCULAR HGB CONC 32.8 % (33.0-36.5); MEAN CORPUSCULAR VOLUME 83.5 FL (78-98); MEAN PLATELET VOLUME 8.2 FL (7.4-10.4); MONOCYTES # (AUTO) 0.5 X10'3 (0-0.9); MONOCYTES % (AUTO) 5.8 % (2-12); NEUTROPHILS # (AUTO) 7.2 X10'3 (1.8-7.7); NEUTROPHILS % (AUTO) 89.2 % (42-75); PLATELET COUNT 109 X10'3 (140-440); RED CELL DISTRIBUTION WIDTH 16.5 % (11.5-14.5)
[2018-05-23 03:43] LABS: ALANINE AMINOTRANSFERASE 24 U/L (12-78); ALBUMIN 1.8 G/DL (3.4-5.0); ALBUMIN/GLOBULIN RATIO 0.6 (1.1-1.5); ALKALINE PHOSPHATASE 128 IU/L (46-116); ANION GAP 15 (8-16); ASPARTATE AMINO TRANSFERASE 30 U/L (10-37); BILIRUBIN,TOTAL 0.4 MG/DL (0.1-1.0); BLOOD UREA NITROGEN 44 MG/DL (7-18); BUN/CREATININE RATIO 9.2 (5.4-32.0); CALCIUM 7.4 MG/DL (8.5-10.1); CHLORIDE 116 MMOL/L (99-107); CREATININE 4.76 MG/DL (0.60-1.10); GLUCOSE 120 MG/DL (70-104); MAGNESIUM 1.3 MG/DL (1.5-2.4); PHOSPHORUS 4.7 MG/DL (2.3-4.5); SODIUM 147 MMOL/L (135-145); TOTAL CARBON DIOXIDE 16.4 MMOL/L (24-32); eGFR 12 ML/MIN
[2018-05-23] MEDS: ipratropium/albuterol 3ml nebule NEB SCH ×4 (03:47→20:34)
[2018-05-23] MEDS: cefepime 2g/NS 100ml ADVANTAGE 100 ML IV SCH ×2 (07:46→07:51)
[2018-05-23] MEDS: famotidine 20mg tablet PO SCH ×2 (07:51→20:55)
[2018-05-23] MEDS: pregabalin 25mg capsule PO SCH (07:52)
[2018-05-23] MEDS: levetiracetam 250mg tablet PO SCH ×2 (07:52→20:55)
[2018-05-23] MEDS: lactobacillus rhamnosus 10,000 MMU CELLS/CAPSULE PO SCH ×2 (07:52→20:56)
[2018-05-23] MEDS: amLODIPine 5mg tablet PO SCH (07:52)
[2018-05-23] MEDS: tamsulosin 0.4mg capsule PO SCH (07:52)
[2018-05-23] MEDS: pregabalin 75mg capsule PO SCH (07:52)
[2018-05-23] MEDS: heparin, porcine 5000 units/ml vial SQ SCH ×2 (07:57→20:57)
[2018-05-23] MEDS ORDERED: levoFLOXACIN-Levaquin 250mg/D5 50 ML IV SCH (08:00)
[2018-05-23] MEDS ORDERED: levoFLOXACIN-Levaquin 250mg/D5 100 ML IV SCH (08:00)
[2018-05-23] MEDS: acetaminophen 325mg tablet PO PRN (14:28)
[2018-05-23 14:31] LABS: COLOR,URINE YELLOW (Yellow); GLUCOSE, URINE NEGATIVE (Neg); KETONES,URINE NEGATIVE (Neg); LEUKOCYTE ESTERASE ,URINE NEGATIVE (Neg); NITRITES, URINE NEGATIVE (Neg); OCCULT BLOOD,URINE LARGE (Neg); PH,URINE 5.5 (4.8-8.0); PROTEIN,URINE >=300 mg/dl (Neg); UROBILINOGEN,URINE 0.2 E.U/dL (0.2-1.0)
[2018-05-23 14:35] LABS: UA COLLECTION TYPE FOLEY CATH
[2018-05-23 14:36] LABS: CLARITY,URINE SLIGHTLY CLOUDY (Clear)
[2018-05-23 14:48] LABS: WBC,URINE 0-4 /HPF (0-4)
[2018-05-23 14:49] LABS: AMORPHOUS URATES 1+; BACTERIA,URINE FEW /HPF (Neg); MUCUS STRANDS FEW /LPF (Neg); SQUAMOUS EPITHELIAL CELL,UR FEW /LPF (FEW)
[2018-05-23 15:11] LABS: TRANSITIONAL EPI CELLS,URINE FEW /HPF
[2018-05-23 15:33] LABS: UA EOSINOPHILS NO EOS /HPF
[2018-05-23] MEDS: meropenem inj 500 MG in normal saline 100ml IV soln 100 ML IV SCH (20:54)
[2018-05-24] VITALS (24 sets, daily range): BP systolic 102–164; BP diastolic 51–93
[2018-05-24] MEDS: ipratropium/albuterol 3ml nebule NEB SCH ×4 (03:21→20:12)
[2018-05-24 03:39] LABS: BASOPHILS % (AUTO) 0.1 % (0-1); EOSINOPHILS # (AUTO) 0.2 X10'3 (0-0.9); EOSINOPHILS % (AUTO) 2.5 % (0-6); HEMATOCRIT 22.9 % (42.0-52.0); HEMOGLOBIN 7.4 g/dl (14.0-17.9); LYMPHOCYTES # (AUTO) 0.5 X10'3 (1.1-4.8); LYMPHOCYTES % (AUTO) 7.2 % (21-51); MEAN CORPUSCULAR HGB CONC 32.2 % (33.0-36.5); MEAN CORPUSCULAR VOLUME 83.8 FL (78-98); MEAN PLATELET VOLUME 8.1 FL (7.4-10.4); MONOCYTES # (AUTO) 0.6 X10'3 (0-0.9); MONOCYTES % (AUTO) 8.6 % (2-12); NEUTROPHILS # (AUTO) 5.3 X10'3 (1.8-7.7); NEUTROPHILS % (AUTO) 81.6 % (42-75); PLATELET COUNT 107 X10'3 (140-440); RED BLOOD COUNT 2.73 X10'6 (4.70-6.10); RED CELL DISTRIBUTION WIDTH 17.3 % (11.5-14.5); WHITE BLOOD COUNT 6.6 X10'3 (4.5-11.0)
[2018-05-24 03:56] LABS: ALANINE AMINOTRANSFERASE 36 U/L (12-78); ALBUMIN 1.8 G/DL (3.4-5.0); ALBUMIN/GLOBULIN RATIO 0.5 (1.1-1.5); ALKALINE PHOSPHATASE 220 IU/L (46-116); ANION GAP 16 (8-16); ASPARTATE AMINO TRANSFERASE 44 U/L (10-37); BILIRUBIN,TOTAL 0.4 MG/DL (0.1-1.0); BLOOD UREA NITROGEN 44 MG/DL (7-18); BUN/CREATININE RATIO 9.6 (5.4-32.0); CALCIUM 7.5 MG/DL (8.5-10.1); CHLORIDE 117 MMOL/L (99-107); CREATININE 4.57 MG/DL (0.60-1.10); GLUCOSE 87 MG/DL (70-104); MAGNESIUM 1.2 MG/DL (1.5-2.4); PHOSPHORUS 3.4 MG/DL (2.3-4.5); POTASSIUM 4.1 MMOL/L (3.5-5.1); SODIUM 148 MMOL/L (135-145); TOTAL CARBON DIOXIDE 15.5 MMOL/L (24-32); TOTAL PROTEIN 5.1 G/DL (6.4-8.2); eGFR 12 ML/MIN
[2018-05-24] MEDS: meropenem inj 500 MG in normal saline 100ml IV soln 100 ML IV SCH ×2 (09:09→20:49)
[2018-05-24] MEDS: famotidine 20mg tablet PO SCH ×2 (09:10→20:50)
[2018-05-24] MEDS: heparin, porcine 5000 units/ml vial SQ SCH ×2 (09:10→20:52)
[2018-05-24] MEDS: lactobacillus rhamnosus 10,000 MMU CELLS/CAPSULE PO SCH ×2 (09:10→20:49)
[2018-05-24] MEDS: amLODIPine 5mg tablet PO SCH (09:10)
[2018-05-24] MEDS: tamsulosin 0.4mg capsule PO SCH (09:11)
[2018-05-24] MEDS: pregabalin 25mg capsule PO SCH (09:11)
[2018-05-24] MEDS: levetiracetam 250mg tablet PO SCH ×2 (09:11→20:49)
[2018-05-24] MEDS: pregabalin 75mg capsule PO SCH (09:11)
[2018-05-24] MEDS: normal saline 1000ml 1,000 ML IV SCH ×2 (09:12→17:16)
[2018-05-24] MEDS: epoetin 20,000 units/ml inj SQ SCH (10:45)
[2018-05-24] MEDS: acetaminophen 325mg tablet PO PRN (17:38)
[2018-05-24] MEDS ORDERED: insulin Lispro (HumaLOG) vial - multi-dose SQ SCH (21:10)
[2018-05-25] VITALS (18 sets, daily range): BP systolic 108–168; BP diastolic 57–105
[2018-05-25] MEDS: ipratropium/albuterol 3ml nebule NEB SCH ×4 (02:16→20:06)
[2018-05-25] MEDS: normal saline 1000ml 1,000 ML IV SCH ×2 (03:12→19:15)
[2018-05-25 04:14] LABS: BASOPHILS % (AUTO) 0.3 % (0-1); EOSINOPHILS # (AUTO) 0.1 X10'3 (0-0.9); HEMATOCRIT 22.9 % (42.0-52.0); HEMOGLOBIN 7.4 g/dl (14.0-17.9); LYMPHOCYTES # (AUTO) 0.4 X10'3 (1.1-4.8); LYMPHOCYTES % (AUTO) 6.8 % (21-51); MEAN CORPUSCULAR HEMOGLOBIN 26.8 PG (27.0-31.0); MEAN CORPUSCULAR HGB CONC 32.1 % (33.0-36.5); MEAN CORPUSCULAR VOLUME 83.6 FL (78-98); MEAN PLATELET VOLUME 7.9 FL (7.4-10.4); MONOCYTES # (AUTO) 0.4 X10'3 (0-0.9); NEUTROPHILS # (AUTO) 4.9 X10'3 (1.8-7.7); NEUTROPHILS % (AUTO) 83.9 % (42-75); PLATELET COUNT 114 X10'3 (140-440); RED BLOOD COUNT 2.74 X10'6 (4.70-6.10); RED CELL DISTRIBUTION WIDTH 17.2 % (11.5-14.5); WHITE BLOOD COUNT 5.9 X10'3 (4.5-11.0)
[2018-05-25 05:07] LABS: ALANINE AMINOTRANSFERASE 42 U/L (12-78); ALBUMIN 1.7 G/DL (3.4-5.0); ALBUMIN/GLOBULIN RATIO 0.5 (1.1-1.5); ALKALINE PHOSPHATASE 329 IU/L (46-116); ANION GAP 16 (8-16); ASPARTATE AMINO TRANSFERASE 41 U/L (10-37); BILIRUBIN,TOTAL 0.6 MG/DL (0.1-1.0); BLOOD UREA NITROGEN 44 MG/DL (7-18); BUN/CREATININE RATIO 10.1 (5.4-32.0); CALCIUM 7.8 MG/DL (8.5-10.1); CHLORIDE 120 MMOL/L (99-107); CREATININE 4.37 MG/DL (0.60-1.10); GLUCOSE 96 MG/DL (70-104); MAGNESIUM 1.3 MG/DL (1.5-2.4); PHOSPHORUS 3.3 MG/DL (2.3-4.5); POTASSIUM 4.2 MMOL/L (3.5-5.1); SODIUM 152 MMOL/L (135-145); TOTAL CARBON DIOXIDE 15.6 MMOL/L (24-32); TOTAL PROTEIN 4.9 G/DL (6.4-8.2); eGFR 13 ML/MIN
[2018-05-25] MEDS: heparin, porcine 5000 units/ml vial SQ SCH ×2 (07:16→20:58)
[2018-05-25] MEDS: famotidine 20mg tablet PO SCH ×2 (07:16→20:58)
[2018-05-25] MEDS: meropenem inj 500 MG in normal saline 100ml IV soln 100 ML IV SCH ×2 (07:16→20:58)
[2018-05-25] MEDS: tamsulosin 0.4mg capsule PO SCH (07:16)
[2018-05-25] MEDS: lactobacillus rhamnosus 10,000 MMU CELLS/CAPSULE PO SCH ×2 (07:16→20:58)
[2018-05-25] MEDS: levetiracetam 250mg tablet PO SCH (07:17)
[2018-05-25] MEDS: pregabalin 75mg capsule PO SCH (07:17)
[2018-05-25] MEDS: pregabalin 25mg capsule PO SCH (07:17)
[2018-05-25] MEDS: amLODIPine 5mg tablet PO SCH (07:17)
[2018-05-25] MEDS: acetaminophen 325mg tablet PO PRN (15:11)
[2018-05-26 02:00] VITALS: BP 158/70
[2018-05-26] MEDS: ipratropium/albuterol 3ml nebule NEB SCH ×4 (03:04→21:20)
[2018-05-26 03:59] LABS: BASOPHILS % (AUTO) 0.4 % (0-1); EOSINOPHILS # (AUTO) 0.3 X10'3 (0-0.9); HEMATOCRIT 25.2 % (42.0-52.0); HEMOGLOBIN 8.1 g/dl (14.0-17.9); LYMPHOCYTES # (AUTO) 0.9 X10'3 (1.1-4.8); MEAN CORPUSCULAR HGB CONC 32.1 % (33.0-36.5); MEAN CORPUSCULAR VOLUME 83.9 FL (78-98); MEAN PLATELET VOLUME 7.7 FL (7.4-10.4); MONOCYTES # (AUTO) 0.6 X10'3 (0-0.9); MONOCYTES % (AUTO) 9.6 % (2-12); NEUTROPHILS # (AUTO) 4.8 X10'3 (1.8-7.7); PLATELET COUNT 138 X10'3 (140-440); RED CELL DISTRIBUTION WIDTH 17.3 % (11.5-14.5); WHITE BLOOD COUNT 6.6 X10'3 (4.5-11.0)
[2018-05-26 04:17] LABS: ALANINE AMINOTRANSFERASE 47 U/L (12-78); ALBUMIN 1.7 G/DL (3.4-5.0); ALBUMIN/GLOBULIN RATIO 0.5 (1.1-1.5); ALKALINE PHOSPHATASE 425 IU/L (46-116); ANION GAP 19 (8-16); ASPARTATE AMINO TRANSFERASE 37 U/L (10-37); BILIRUBIN,TOTAL 0.6 MG/DL (0.1-1.0); BLOOD UREA NITROGEN 42 MG/DL (7-18); BUN/CREATININE RATIO 10.3 (5.4-32.0); CALCIUM 7.9 MG/DL (8.5-10.1); CHLORIDE 121 MMOL/L (99-107); CREATININE 4.08 MG/DL (0.60-1.10); GLUCOSE 91 MG/DL (70-104); MAGNESIUM 1.4 MG/DL (1.5-2.4); PHOSPHORUS 3.3 MG/DL (2.3-4.5); POTASSIUM 4.1 MMOL/L (3.5-5.1); TOTAL CARBON DIOXIDE 15.3 MMOL/L (24-32); TOTAL PROTEIN 5.1 G/DL (6.4-8.2); eGFR 14 ML/MIN
[2018-05-26 04:22] LABS: SODIUM 155 MMOL/L (135-145)
[2018-05-26 06:30] VITALS: BP 132/68
[2018-05-26] MEDS: famotidine 20mg tablet PO SCH ×2 (08:02→20:50)
[2018-05-26] MEDS: lactobacillus rhamnosus 10,000 MMU CELLS/CAPSULE PO SCH ×2 (08:02→20:50)
[2018-05-26] MEDS: amLODIPine 5mg tablet PO SCH (08:02)
[2018-05-26] MEDS: pregabalin 75mg capsule PO SCH (08:02)
[2018-05-26] MEDS: meropenem inj 500 MG in normal saline 100ml IV soln 100 ML IV SCH ×2 (08:03→20:50)
[2018-05-26] MEDS: heparin, porcine 5000 units/ml vial SQ SCH ×2 (08:03→20:50)
[2018-05-26] MEDS: tamsulosin 0.4mg capsule PO SCH (08:03)
[2018-05-26] MEDS: pregabalin 25mg capsule PO SCH (08:03)
[2018-05-26] MEDS: epoetin 20,000 units/ml inj SQ SCH (09:13)
[2018-05-26] MEDS: sodium chloride 0.45% 1,000 ML IV SCH ×2 (09:39→20:51)
[2018-05-26 11:00] VITALS: BP 142/62
[2018-05-26 17:54] VITALS: BP 161/77
[2018-05-26 18:00] VITALS: BP 157/71
[2018-05-26 22:00] VITALS: BP 157/75
[2018-05-27 02:00] VITALS: BP 166/74
[2018-05-27] MEDS: ipratropium/albuterol 3ml nebule NEB SCH ×4 (03:07→20:28)
[2018-05-27 06:00] VITALS: BP 148/79
[2018-05-27 07:15] LABS: BASOPHILS % (AUTO) 0.3 % (0-1); EOSINOPHILS # (AUTO) 0.2 X10'3 (0-0.9); EOSINOPHILS % (AUTO) 3.2 % (0-6); HEMATOCRIT 24.6 % (42.0-52.0); HEMOGLOBIN 7.7 g/dl (14.0-17.9); LYMPHOCYTES # (AUTO) 0.6 X10'3 (1.1-4.8); LYMPHOCYTES % (AUTO) 10.9 % (21-51); MEAN CORPUSCULAR HEMOGLOBIN 26.4 PG (27.0-31.0); MEAN CORPUSCULAR HGB CONC 31.2 % (33.0-36.5); MEAN CORPUSCULAR VOLUME 84.6 FL (78-98); MEAN PLATELET VOLUME 8.2 FL (7.4-10.4); MONOCYTES # (AUTO) 0.7 X10'3 (0-0.9); MONOCYTES % (AUTO) 12.7 % (2-12); NEUTROPHILS % (AUTO) 72.9 % (42-75); PLATELET COUNT 138 X10'3 (140-440); RED BLOOD COUNT 2.91 X10'6 (4.70-6.10); WHITE BLOOD COUNT 5.4 X10'3 (4.5-11.0)
[2018-05-27 07:31] LABS: ALANINE AMINOTRANSFERASE 29 U/L (12-78); ALBUMIN 1.5 G/DL (3.4-5.0); ALBUMIN/GLOBULIN RATIO 0.4 (1.1-1.5); ALKALINE PHOSPHATASE 303 IU/L (46-116); ANION GAP 21 (8-16); ASPARTATE AMINO TRANSFERASE 29 U/L (10-37); BILIRUBIN,TOTAL 0.4 MG/DL (0.1-1.0); BLOOD UREA NITROGEN 42 MG/DL (7-18); BUN/CREATININE RATIO 10.7 (5.4-32.0); CALCIUM 8.3 MG/DL (8.5-10.1); CHLORIDE 121 MMOL/L (99-107); CREATININE 3.94 MG/DL (0.60-1.10); GLUCOSE 83 MG/DL (70-104); MAGNESIUM 1.5 MG/DL (1.5-2.4); POTASSIUM 4.3 MMOL/L (3.5-5.1); TOTAL PROTEIN 5.1 G/DL (6.4-8.2); eGFR 15 ML/MIN
[2018-05-27 07:36] LABS: SODIUM 156 MMOL/L (135-145)
[2018-05-27 07:37] LABS: TOTAL CARBON DIOXIDE 14.5 MMOL/L (24-32)
[2018-05-27 07:38] LABS: ANISOCYTOSIS 2+; HYPOCHROMASIA 1+; PLATELET ESTIMATE DECREASED; POIKILOCYTOSIS 1+; POLYCHROMASIA 1+; TOTAL CELLS COUNTED 100
[2018-05-27] MEDS: sodium bicarbonate (8.4%) inj. 50 MEQ in dextrose 5%-water 1,000 ML IV SCH ×2 (07:55→21:24)
[2018-05-27] MEDS: meropenem inj 500 MG in normal saline 100ml IV soln 100 ML IV SCH ×2 (08:00→21:24)
[2018-05-27] MEDS: heparin, porcine 5000 units/ml vial SQ SCH ×2 (09:43→21:25)
[2018-05-27] MEDS: pregabalin 25mg capsule PO SCH (09:43)
[2018-05-27] MEDS: lactobacillus rhamnosus 10,000 MMU CELLS/CAPSULE PO SCH ×2 (09:43→20:00)
[2018-05-27] MEDS: famotidine 20mg tablet PO SCH ×2 (09:43→20:00)
[2018-05-27] MEDS: tamsulosin 0.4mg capsule PO SCH (09:44)
[2018-05-27] MEDS: pregabalin 75mg capsule PO SCH (09:44)
[2018-05-27] MEDS: amLODIPine 5mg tablet PO SCH (09:44)
[2018-05-27 11:00] VITALS: BP 139/68
[2018-05-27] MEDS ORDERED: sodium bicarbonate (8.4%) inj. 50 MEQ in dextrose 5%-water 1,000 ML IV SCH (12:42)
[2018-05-27 15:00] VITALS: BP 168/70
[2018-05-27] MEDS: acetaminophen 650mg rectal suppository RC PRN (18:46)
[2018-05-27 19:00] VITALS: BP 151/63
[2018-05-27 23:00] VITALS: BP 134/61
[2018-05-28] MEDS: ipratropium/albuterol 3ml nebule NEB SCH ×4 (02:26→20:45)
[2018-05-28 03:00] VITALS: BP 146/82
[2018-05-28 06:00] VITALS: BP 159/79
[2018-05-28 07:01] LABS: BASOPHILS % (AUTO) 0.3 % (0-1); EOSINOPHILS # (AUTO) 0.2 X10'3 (0-0.9); EOSINOPHILS % (AUTO) 3.3 % (0-6); HEMATOCRIT 25.4 % (42.0-52.0); HEMOGLOBIN 8.1 g/dl (14.0-17.9); LYMPHOCYTES # (AUTO) 0.7 X10'3 (1.1-4.8); LYMPHOCYTES % (AUTO) 11.9 % (21-51); MEAN CORPUSCULAR HEMOGLOBIN 26.5 PG (27.0-31.0); MEAN CORPUSCULAR HGB CONC 31.7 % (33.0-36.5); MEAN CORPUSCULAR VOLUME 83.7 FL (78-98); MEAN PLATELET VOLUME 8.3 FL (7.4-10.4); MONOCYTES # (AUTO) 0.6 X10'3 (0-0.9); MONOCYTES % (AUTO) 10.2 % (2-12); NEUTROPHILS # (AUTO) 4.3 X10'3 (1.8-7.7); NEUTROPHILS % (AUTO) 74.3 % (42-75); PLATELET COUNT 135 X10'3 (140-440); RED BLOOD COUNT 3.04 X10'6 (4.70-6.10); RED CELL DISTRIBUTION WIDTH 17.3 % (11.5-14.5); WHITE BLOOD COUNT 5.8 X10'3 (4.5-11.0)
[2018-05-28 07:24] LABS: ALANINE AMINOTRANSFERASE 25 U/L (12-78); ALBUMIN 1.5 G/DL (3.4-5.0); ALBUMIN/GLOBULIN RATIO 0.4 (1.1-1.5); ALKALINE PHOSPHATASE 287 IU/L (46-116); ANION GAP 13 (8-16); ASPARTATE AMINO TRANSFERASE 30 U/L (10-37); BILIRUBIN,TOTAL 0.4 MG/DL (0.1-1.0); BLOOD UREA NITROGEN 43 MG/DL (7-18); BUN/CREATININE RATIO 11.2 (5.4-32.0); CALCIUM 8.3 MG/DL (8.5-10.1); CHLORIDE 120 MMOL/L (99-107); CREATININE 3.83 MG/DL (0.60-1.10); GLUCOSE 134 MG/DL (70-104); MAGNESIUM 1.6 MG/DL (1.5-2.4); PHOSPHORUS 3.6 MG/DL (2.3-4.5); SODIUM 151 MMOL/L (135-145); TOTAL PROTEIN 5.4 G/DL (6.4-8.2); eGFR 15 ML/MIN
[2018-05-28] MEDS: sodium bicarbonate (8.4%) inj. 50 MEQ in dextrose 5%-water 1,000 ML IV SCH ×3 (09:00→21:15)
[2018-05-28] MEDS: meropenem inj 500 MG in normal saline 100ml IV soln 100 ML IV SCH ×2 (09:00→20:00)
[2018-05-28] MEDS: heparin, porcine 5000 units/ml vial SQ SCH ×2 (09:02→20:01)
[2018-05-28] MEDS: pregabalin 25mg capsule PO SCH (09:53)
[2018-05-28] MEDS: famotidine 20mg tablet PO SCH ×2 (09:53→20:00)
[2018-05-28] MEDS: amLODIPine 5mg tablet PO SCH (09:53)
[2018-05-28] MEDS: lactobacillus rhamnosus 10,000 MMU CELLS/CAPSULE PO SCH ×2 (09:54→20:00)
[2018-05-28] MEDS: tamsulosin 0.4mg capsule PO SCH (09:54)
[2018-05-28] MEDS: pregabalin 75mg capsule PO SCH (09:54)
[2018-05-28 11:00] VITALS: BP 160/69
[2018-05-28 16:00] VITALS: BP 156/76
[2018-05-28] MEDS: acetaminophen 650mg rectal suppository RC PRN (16:15)
[2018-05-28 19:00] VITALS: BP 144/67
[2018-05-28 23:00] VITALS: BP 141/82
[2018-05-29] MEDS: ipratropium/albuterol 3ml nebule NEB SCH ×4 (02:00→21:01)
[2018-05-29 03:00] VITALS: BP 155/67
[2018-05-29 06:30] VITALS: BP 153/74
[2018-05-29 06:36] LABS: BASOPHILS % (AUTO) 0.6 % (0-1); EOSINOPHILS # (AUTO) 0.3 X10'3 (0-0.9); EOSINOPHILS % (AUTO) 4.5 % (0-6); HEMATOCRIT 23.8 % (42.0-52.0); HEMOGLOBIN 7.6 g/dl (14.0-17.9); LYMPHOCYTES # (AUTO) 0.7 X10'3 (1.1-4.8); LYMPHOCYTES % (AUTO) 11.8 % (21-51); MEAN CORPUSCULAR HEMOGLOBIN 26.6 PG (27.0-31.0); MEAN CORPUSCULAR HGB CONC 31.9 % (33.0-36.5); MEAN CORPUSCULAR VOLUME 83.6 FL (78-98); MEAN PLATELET VOLUME 8.3 FL (7.4-10.4); MONOCYTES # (AUTO) 0.6 X10'3 (0-0.9); MONOCYTES % (AUTO) 9.1 % (2-12); NEUTROPHILS # (AUTO) 4.6 X10'3 (1.8-7.7); PLATELET COUNT 140 X10'3 (140-440); RED BLOOD COUNT 2.84 X10'6 (4.70-6.10); RED CELL DISTRIBUTION WIDTH 17.4 % (11.5-14.5); WHITE BLOOD COUNT 6.2 X10'3 (4.5-11.0)
[2018-05-29 06:58] LABS: ALANINE AMINOTRANSFERASE 25 U/L (12-78); ALBUMIN 1.4 G/DL (3.4-5.0); ALBUMIN/GLOBULIN RATIO 0.4 (1.1-1.5); ALKALINE PHOSPHATASE 245 IU/L (46-116); ANION GAP 13 (8-16); ASPARTATE AMINO TRANSFERASE 39 U/L (10-37); BILIRUBIN,TOTAL 0.4 MG/DL (0.1-1.0); BLOOD UREA NITROGEN 47 MG/DL (7-18); BUN/CREATININE RATIO 12.6 (5.4-32.0); CALCIUM 7.9 MG/DL (8.5-10.1); CHLORIDE 116 MMOL/L (99-107); CREATININE 3.73 MG/DL (0.60-1.10); GLUCOSE 172 MG/DL (70-104); MAGNESIUM 1.5 MG/DL (1.5-2.4); PHOSPHORUS 3.7 MG/DL (2.3-4.5); POTASSIUM 3.8 MMOL/L (3.5-5.1); PREALBUMIN 9.2 MG/DL (19-36); SODIUM 148 MMOL/L (135-145); TOTAL CARBON DIOXIDE 19.2 MMOL/L (24-32); TOTAL PROTEIN 5.1 G/DL (6.4-8.2); eGFR 16 ML/MIN
[2018-05-29] MEDS: heparin, porcine 5000 units/ml vial SQ SCH ×2 (07:53→19:26)
[2018-05-29] MEDS: meropenem inj 500 MG in normal saline 100ml IV soln 100 ML IV SCH (07:53)
[2018-05-29] MEDS: sodium bicarbonate (8.4%) inj. 50 MEQ in dextrose 5%-water 1,000 ML IV SCH ×2 (07:53→18:33)
[2018-05-29] MEDS: amLODIPine 5mg tablet PO SCH (07:54)
[2018-05-29] MEDS: lactobacillus rhamnosus 10,000 MMU CELLS/CAPSULE PO SCH ×2 (07:54→19:26)
[2018-05-29] MEDS: pregabalin 25mg capsule PO SCH (07:54)
[2018-05-29] MEDS: acetaminophen 325mg tablet PO PRN ×2 (07:54→17:15)
[2018-05-29] MEDS: famotidine 20mg tablet PO SCH ×2 (07:54→19:26)
[2018-05-29] MEDS: tamsulosin 0.4mg capsule PO SCH (07:54)
[2018-05-29] MEDS: pregabalin 75mg capsule PO SCH (07:54)
[2018-05-29] MEDS: epoetin 20,000 units/ml inj SQ SCH (08:40)
[2018-05-29 11:45] VITALS: BP 125/63
[2018-05-29] MEDS ORDERED: methylPREDNISolone sod succ 125mg/2ml vial IV ONE (12:35)
[2018-05-29 15:54] VITALS: BP 149/72
[2018-05-29 19:00] VITALS: BP 130/65
[2018-05-29 23:00] VITALS: BP 113/62
[2018-05-30] MEDS: insulin regular, human vial - multi-dose SQ SCH ×2 (01:42→09:30)
[2018-05-30] MEDS: ipratropium/albuterol 3ml nebule NEB SCH ×2 (02:15→08:25)
[2018-05-30 03:00] VITALS: BP 128/78
[2018-05-30 06:00] VITALS: BP 146/87
[2018-05-30] MEDS ORDERED: LORA-269 PO (08:53)
[2018-05-30] MEDS: pregabalin 25mg capsule PO SCH (09:20)
[2018-05-30] MEDS: lactobacillus rhamnosus 10,000 MMU CELLS/CAPSULE PO SCH (09:20)
[2018-05-30] MEDS: tamsulosin 0.4mg capsule PO SCH (09:20)
[2018-05-30] MEDS: pregabalin 75mg capsule PO SCH (09:21)
[2018-05-30] MEDS: amLODIPine 5mg tablet PO SCH (09:21)
[2018-05-30] MEDS: famotidine 20mg tablet PO SCH (09:21)
[2018-05-30] MEDS: heparin, porcine 5000 units/ml vial SQ SCH (09:22)
[2018-05-30 11:00] VITALS: BP 142/76
== END 2018-05-30 13:00 | disposition hospice, inpatient (51) | DRG 871 ==
LOC: ER 02:04 → ED HOLD 05:24 → ICU 2S 07:15 → PCU 3S 05-10 21:50 → ICU 2S 05-20 14:15 → PCU 3S 05-25 16:50
PROVIDERS: ADMIT Internal Medicine Critical Care Medicine; ATTEND Internal Medicine Critical Care Medicine
PROC: 5A1945Z Respiratory Ventilation, 24-96 Consecutive Hours (ICD-10-PCS; principal; 2018-05-06)
PROC: 0BH17EZ Insertion of Endotracheal Airway into Trachea, Via Natural or Artificial Opening (ICD-10-PCS; 2018-05-06)
PROC: BW2F1ZZ Computerized Tomography (CT Scan) of Neck using Low Osmolar Contrast (ICD-10-PCS; 2018-05-06)
PROC: 06HM33Z Insertion of Infusion Device into Right Femoral Vein, Percutaneous Approach (ICD-10-PCS; 2018-05-06)
PROC: 06HN33Z Insertion of Infusion Device into Left Femoral Vein, Percutaneous Approach (ICD-10-PCS; 2018-05-06)
PROC: 5A09357 Assistance with Respiratory Ventilation, Less than 24 Consecutive Hours, Continuous Positive Airway Pressure (ICD-10-PCS; 2018-05-09)
PROC: 5A09357 Assistance with Respiratory Ventilation, Less than 24 Consecutive Hours, Continuous Positive Airway Pressure (ICD-10-PCS; 2018-05-10)
PROC: 5A09357 Assistance with Respiratory Ventilation, Less than 24 Consecutive Hours, Continuous Positive Airway Pressure (ICD-10-PCS; 2018-05-11)
PROC: 5A09357 Assistance with Respiratory Ventilation, Less than 24 Consecutive Hours, Continuous Positive Airway Pressure (ICD-10-PCS; 2018-05-12)
PROC: 5A09357 Assistance with Respiratory Ventilation, Less than 24 Consecutive Hours, Continuous Positive Airway Pressure (ICD-10-PCS; 2018-05-13)
PROC: 5A09357 Assistance with Respiratory Ventilation, Less than 24 Consecutive Hours, Continuous Positive Airway Pressure (ICD-10-PCS; 2018-05-14)
PROC: 5A09357 Assistance with Respiratory Ventilation, Less than 24 Consecutive Hours, Continuous Positive Airway Pressure (ICD-10-PCS; 2018-05-15)
PROC: 5A09357 Assistance with Respiratory Ventilation, Less than 24 Consecutive Hours, Continuous Positive Airway Pressure (ICD-10-PCS; 2018-05-16)
PROC: 5A09357 Assistance with Respiratory Ventilation, Less than 24 Consecutive Hours, Continuous Positive Airway Pressure (ICD-10-PCS; 2018-05-17)
PROC: 5A09357 Assistance with Respiratory Ventilation, Less than 24 Consecutive Hours, Continuous Positive Airway Pressure (ICD-10-PCS; 2018-05-18)
PROC: 5A09357 Assistance with Respiratory Ventilation, Less than 24 Consecutive Hours, Continuous Positive Airway Pressure (ICD-10-PCS; 2018-05-19)
PROC: 5A09357 Assistance with Respiratory Ventilation, Less than 24 Consecutive Hours, Continuous Positive Airway Pressure (ICD-10-PCS; 2018-05-20)
PROC: 5A09357 Assistance with Respiratory Ventilation, Less than 24 Consecutive Hours, Continuous Positive Airway Pressure (ICD-10-PCS; 2018-05-21)
PROC: 4A10X4Z Monitoring of Central Nervous Electrical Activity, External Approach (ICD-10-PCS; 2018-05-21)
PROC: 5A09357 Assistance with Respiratory Ventilation, Less than 24 Consecutive Hours, Continuous Positive Airway Pressure (ICD-10-PCS; 2018-05-22)
PROC: 5A09357 Assistance with Respiratory Ventilation, Less than 24 Consecutive Hours, Continuous Positive Airway Pressure (ICD-10-PCS; 2018-05-23)
PROC: 5A09357 Assistance with Respiratory Ventilation, Less than 24 Consecutive Hours, Continuous Positive Airway Pressure (ICD-10-PCS; 2018-05-24)
PROC: 5A09357 Assistance with Respiratory Ventilation, Less than 24 Consecutive Hours, Continuous Positive Airway Pressure (ICD-10-PCS; 2018-05-25)
PROC: 5A09357 Assistance with Respiratory Ventilation, Less than 24 Consecutive Hours, Continuous Positive Airway Pressure (ICD-10-PCS; 2018-05-26)
PROC: 5A09357 Assistance with Respiratory Ventilation, Less than 24 Consecutive Hours, Continuous Positive Airway Pressure (ICD-10-PCS; 2018-05-27)
PROC: 5A09357 Assistance with Respiratory Ventilation, Less than 24 Consecutive Hours, Continuous Positive Airway Pressure (ICD-10-PCS; 2018-05-28)
PROC: 5A09357 Assistance with Respiratory Ventilation, Less than 24 Consecutive Hours, Continuous Positive Airway Pressure (ICD-10-PCS; 2018-05-29)
PROC: 5A09357 Assistance with Respiratory Ventilation, Less than 24 Consecutive Hours, Continuous Positive Airway Pressure (ICD-10-PCS; 2018-05-30)
DX: A41.9 Sepsis, unspecified organism (principal); R09.2 Respiratory arrest; G93.1 Anoxic brain damage, not elsewhere classified; E87.2 Acidosis; L03.114 Cellulitis of left upper limb; E87.0 Hyperosmolality and hypernatremia; N18.4 Chronic kidney disease, stage 4 (severe); N17.9 Acute kidney failure, unspecified; M86.672 Other chronic osteomyelitis, left ankle and foot; E46 Unspecified protein-calorie malnutrition; J32.2 Chronic ethmoidal sinusitis; G89.29 Other chronic pain; J32.3 Chronic sphenoidal sinusitis; D63.1 Anemia in chronic kidney disease; R56.9 Unspecified convulsions; E11.51 Type 2 diabetes mellitus with diabetic peripheral angiopathy without gangrene; Z51.5 Encounter for palliative care; M54.9 Dorsalgia, unspecified; R40.2431 Glasgow coma scale score 3-8, in the field [EMT or ambulance]; I12.9 Hypertensive chronic kidney disease with stage 1 through stage 4 chronic kidney disease, or unspecified chronic kidney disease; E04.2 Nontoxic multinodular goiter; E11.22 Type 2 diabetes mellitus with diabetic chronic kidney disease; E11.42 Type 2 diabetes mellitus with diabetic polyneuropathy; E11.69 Type 2 diabetes mellitus with other specified complication; E87.6 Hypokalemia; Z93.3 Colostomy status; Z90.49 Acquired absence of other specified parts of digestive tract; Z89.411 Acquired absence of right great toe; Z90.5 Acquired absence of kidney; Z98.41 Cataract extraction status, right eye; Z98.42 Cataract extraction status, left eye; Z79.01 Long term (current) use of anticoagulants; Z86.718 Personal history of other venous thrombosis and embolism; Z85.038 Personal history of other malignant neoplasm of large intestine; Z85.528 Personal history of other malignant neoplasm of kidney; Z68.30 Body mass index [BMI] 30.0-30.9, adult
CPT/HCPCS: 36415; 36556; 36600; 70450; 70491; 71045; 73718; 74018; 80053; 80202; 81001; 82570; 82728; 82803; 82948; 83540; 83550; 83605; 83735; 84075; 84080; 84100; 84134; 84145; 84300; 84439; 84443; 84484; 85018; 85025; 85379; 85610; 85730; 86885; 86900; 86901; 87040; 87070; 87077; 87088; 87186; 87207; 92616; 93005; 93306; 93880; 93931; 93970; 93971; 94002; 94003; 94640; 94660; 94668; 94760; 95816; 96365; 96379; 97110; 97116; 97162; 97530; 99291; A4421; A6257; A9270; G0378; J0282; J0692; J0696; J0885; J1644; J1815; J1940; J1953; J1956; J2060; J2185; J2250; J2543; J2916; J2930; J3010; J3370; J3490; J7030; J7042; J7070; Q9967